=== PATIENT | female | born 1945 | race Caucasian/White ===

== ENCOUNTER 2019-11-18 15:08 | Inpatient (IN) ==
[2019-11-18] MEDS ORDERED: ONDANSETRON 4 MG/2 ML VIAL IV PRN (16:54)
[2019-11-18] MEDS ORDERED: SENNOSIDES 1 TABLET PO PRN (16:54)
[2019-11-18] MEDS ORDERED: ACETAMINOPHEN 325 MG TABLET PO PRN (16:54)
[2019-11-18] MEDS ORDERED: LACTULOSE 20 GM/30 ML ORAL.SOL PO PRN (16:54)
[2019-11-18] MEDS ORDERED: DEXTROSE 31 GM ORAL.SUSP PO PRN (16:54)
[2019-11-18] MEDS ORDERED: DEXTROSE 50% 50 ML VIAL IV PRN (16:54)
--- NOTE | 2019-11-18 18:01 | Internal Med History&Physical ---
Medical - H&P: [facility] Patient information: Note initiated : 11/18/19 at 5:57 pm Service Date, if different from initiated Date: [] Patient: Rosita Rodriguez a 74 y/o F admitted on 11/18/19 for End stage renal disease. Chief Complaint: Confusion History of present illness: Ms. Rodriguez is a 74 year old F with a history of cirrhosis as well as chronic kidney disease/new end-stage renal disease and dialysis, type 2 diabetes who presented to the emergency department at [facility] today with altered mental status. History is obtained in speaking with Dr. Kong from the [place] [facility]. The patient's recent past history includes an admission at [facility] on 11/04 where she presented with significant abdominal ascites and new acute on chronic renal failure. During that hospitalization she had paracenteses, eventually had a TIPS placed secondary to rapidly reaccumulating ascites. She was seen in consultation by nephrology, subsequently required hemodialysis and is had a tunneled catheter placed. She is now on 3 times a week dialysis with apparently new end-stage renal disease. 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 Yesterday, the patient's daughter reported at [facility] that she was alert and appropriate in her usual self. This morning, her daughter went to crab picker the patient to take her to a doctor's appointment and she had altered mental status, she was lethargic and somnolent. At [facility] her GCS was between 9 and 10, she opened her eyes, but was nonverbal. Evaluation there revealed mildly depressed white count of 3.6, normal electrolytes, and ammonia of 35. Urine analysis was negative for evidence of infection. Chest x-ray showed low lung volumes and head CT showed nonspecific aging changes. Patient is transferred to [facility] for admission because she will require maintenance hemodialysis, and for further evaluation of her encephalopathy. Patient is unable to give a reliable review of systems, answering at times "yes" to every question even when it was contradictory such as "are you breathing okay" and "are you short of breath" both being responded to in the affirmative. ROS unobtainable: due to mental status Medical - H&P: PMH Medical history: Amputation of fifth toe of right foot (Acute) Cirrhosis of liver not due to alcohol (Acute) End stage renal disease (Acute) Esophageal varices in cirrhosis (Acute) Osteomyelitis of toe of right foot (Acute) Type 2 diabetes mellitus with end-stage renal disease (Acute) Surgical history: History of cholecystectomy (Acute) History of total abdominal hysterectomy (Acute) S/P TIPS (transjugular intrahepatic portosystemic shunt) (Acute) Pertinent family history: Per outside records: Father Stroke Brother Stroke Mother Dementia Social history: Resides at living facility per outside records. Also per records, no current alcohol use, does not smoke. Medical - H&P: Meds Home Medications Medication Instructions Recorded Confirmed Type Ibuprofen [Advil] 200 mg PO BID 08/21/17 08/21/17 History Insulin Detemir [Levemir Flextouch] 100 unit SQ DAILY 08/21/17 08/21/17 History Ipratropium [place] [Atrovent Hfa] 1 puff INH PRN PRN 08/21/17 11/18/19 History Levocetirizine Dihydrochloride 5 mg PO DAILY 08/21/17 08/21/17 History [Xyzal] Multivit-Min/Iron/Folic Acid/K 1 each PO DAILY 08/21/17 11/18/19 History [Multi-Day Plus Minerals Tablet] Omeprazole [PriLOSEC] 20 mg PO ACB 08/21/17 08/21/17 History Telmisartan [Micardis] 80 mg PO HS 08/21/17 08/21/17 History Venlafaxine [Effexor] 75 mg PO BID 08/21/17 08/21/17 History Vitamin D3 1,000 unit PO DAILY 08/21/17 08/21/17 History traMADol [Ultram] 50 - 100 mg PO Q4HP PRN 08/21/17 08/21/17 History traZODone HCL [Trazodone HCl] 50 mg PO HS 08/21/17 08/21/17 History Acetaminophen [Non-Aspirin] 650 mg PO Q4 PRN 11/18/19 11/18/19 History Bisacodyl [Dulcolax] 10 mg IA DAILYP PRN 11/18/19 11/18/19 History DULoxetine [Cymbalta] 60 mg PO DAILY 11/18/19 History Furosemide [Lasix] 80 mg PO DAILY 11/18/19 History Lactulose [Enulose] 10 gm PO BID 11/18/19 11/18/19 History Lansoprazole [Prevacid 24Hr] 15 mg PO DAILY 11/18/19 11/18/19 History Magnesium Hydroxide [Milk of 30 ml PO DAILYP PRN 11/18/19 11/18/19 History Magnesia] Na Phos,M-B/Na Phos,Di-Ba [Fleets 1 dose IA PRN PRN 11/18/19 11/18/19 History Adult] Rifaximin [Xifaxan] 550 mg PO BID 11/18/19 11/18/19 History Spironolactone 50 mg PO DAILY 11/18/19 History Allergies Allergy/AdvReac Type Severity Reaction Status Date / Time Sulfa (Sulfonamide Allergy Severe Anaphylaxis Verified 11/18/19 18:48 Antibiotics) aspirin Allergy Mild Itching Verified 11/18/19 18:48 codeine Allergy Mild Hives Verified 11/18/19 18:48 diphenhydramine Allergy Mild Itching Verified 11/18/19 18:48 [From Benadryl] doxycycline Allergy Mild Itching Verified 11/18/19 18:48 morphine Allergy Mild Hives Verified 11/18/19 18:48 Banana Allergy Verified 11/18/19 18:48 oxycodone Allergy Verified 11/18/19 18:48 [place] Allergy Verified 11/18/19 18:48 cantaloupe Allergy Uncoded 11/18/19 18:48 Medical - H&P: Exam - Constitutional Exam: GENERAL: Awake, disoriented, nontoxic-appearing. HEENT: Atraumatic. PERRL at 4 mm, conjunctiva clear, no scleral icterus. Hearing appears grossly intact. Oropharynx with tacky mucous membranes, no lip or gum lesions, pharyngeal exam limited due to patient having difficulty cooperating with exam; tongue midline. NECK: Supple without meningismus, good passive range of motion, no thyromegaly RESPIRATORY: Few basal rales bilaterally, no wheezes or rhonchi. Respiratory effort is unlabored. CARDIOVASCULAR: Regular rate and rhythm, 1/6 systolic murmur URSB, no gallop or rub. 1+ peripheral edema. Carotid pulses 2+. GI: Abdomen soft, nontender, no guarding or rebound. Distended, with dull flanks to percussion. Bowel sounds are present. MUSCULOSKELETAL: No joint erythema or swelling, normal range of motion in all extremities. SKIN: Intact, warm, dry, no jaundice. Scattered small eschars on the skin. Skin turgor normal. NEUROLOGIC: Cranial nerves II through XII grossly intact as can best be tested. Muscle mass normal. Moves all extremities with apparent equal strength Deep tendon reflexes 2+ at the biceps and patella. PSYCHIATRIC: Awake, responses are repetitive. Disoriented. Medical - H&P: Reslt - Labs CBC & Chem 7: 11/18/19 17:39 11/18/19 17:39 Labs: At [facility]: Sodium 139, potassium 4.7, bicarb 24, chloride 103, BUN 44, creatinine 3.1 WBC 3.6, hemoglobin 8.5, platelet count 78,000 Ammonia 35 - Impressions Chest x-ray from [facility] read as low normal lung volumes with interstitial edema CT of the head at [facility] read as mild, nonspecific senescent aging changes with pansinusitis Medical - H&P: A/P (1) Encephalopathy acute Current visit: Yes Status: Acute (2) End stage renal disease Current visit: Yes Status: Acute (3) Type 2 diabetes mellitus with renal complication Current visit: Yes Status: Chronic (4) Cirrhosis Current visit: Yes Status: Chronic - Narrative A/P Narrative: 74-year-old female with recent progression to end-stage renal disease, cirrhosis with recent TIPS placement presents with altered mental status/encephalopathy. Encephalopathy. Patient apparently was at her usual, normal baseline yesterday when her daughter saw her. Today she is confused and lethargic. Differential diagnosis includes -hepatic encephalopathy related to her recent TIPS procedure, though she is on rifaximin and lactulose and ammonia is normal -sepsis is another possibility, though no focal site of infection other than pansinusitis found -SBP causing decompensation is possible, she appears to have recurrent ascites on exam -medication effect also possibility. Plan: Inpatient admission Check blood cultures for occult bacteremia Follow-up toxicology screen done at [facility] Paracentesis to rule out SBP Continue treatment with rifaximin and lactulose If not improving, consider MRI of the head End-stage renal disease. Started on hemodialysis during her recent hospitalization at [facility] between 11/04 and 11/12 earlier this month. Has a tunneled dialysis catheter. Catheter is nontender, no erythema, lower suspicion for infection. Plan: Nephrology consultation, apparently patient missed her dialysis today. Type 2 diabetes. On insulin in the past, does not appear to be on medications currently according to facility drug list Plan: Renal/diabetic diet if able to take p.o., Accu-Cheks, sliding scale insulin. Check hemoglobin A1c. Cirrhosis. Noted to be idiopathic in past records. Past records also indicate a history of variceal banding. Had TIPS procedure done during prior hospitalization earlier this month secondary to recurrent ascites. Plan: Continue rifaximin and lactulose. Check TIPS patency. Paracentesis to evaluate for SBP as noted above. Prophylaxis: Subcu heparin CODE STATUS: Discussed with her daughter, full code
[2019-11-18] MEDS: INSULIN LISPRO 1 UNIT/0.01 ML UNIT SQ SCH ×2 (18:11→21:39)
[2019-11-18 18:26] LABS: Basophils # (Auto) 0.02 K/mcL (0.00-0.30); Basophils % (Auto) 0.7 % (0.0-2.0); Eosinophils # (Auto) 0.11 K/mcL (0.00-0.70); Eosinophils % (Auto) 3.6 % (0.0-7.0); Hematocrit 25.8 % (34.1-44.9); Hemoglobin 8.6 g/dL (11.2-15.7); Lymphocytes # (Auto) 0.54 K/mcL (1.50-4.80); Lymphocytes % (Auto) 17.8 % (15.5-49.0); Mean Cell Volume 83.8 fL (80.0-100.0); Mean Corpuscular HGB Conc 33.3 g/dL (31.0-36.0); Mean Platelet Volume 9.8 fL (7.4-10.4); Monocytes # (Auto) 0.33 K/mcL (0.10-0.90); Monocytes % (Auto) 10.9 % (1.0-12.0); Platelet Count 71 K/mcL (140-440); RBC 3.08 M/mcL (3.59-5.38); Red Cell Distribution Width 16.2 % (11.5-14.5)
[2019-11-18 18:55] LABS: ALT/SGPT 21 U/l (0-40); AST/SGOT 55 U/l (0-37); Albumin 2.7 gm/dL (3.2-5.2); Alkaline Phosphatase 159 U/L (39-117); Bilirubin,Total 1.4 mg/dL (0.0-1.0); Blood Urea Nitrogen 47 mg/dl (8-23); Calcium 8.5 mg/dl (8.6-10.4); Carbon Dioxide 23 mmol/L (22-30); Chloride 100 mmol/L (96-108); Globulin 2.7 gm/dL (2.2-3.7); Glomerular Filtration Rate 14; Glucose 120 mg/dL (70-105); Lactate Dehydrogenase 386 U/L (94-250); Phosphorous 5.4 mg/dL (2.7-4.5); Triglycerides 71 mg/dl (<150)
[2019-11-18 19:01] LABS: Bilirubin,Direct 0.5 mg/dL (0.0-0.3); Uric Acid 5.9 mg/dL (2.5-8.0)
[2019-11-18 19:21] LABS: Estimated Average Glucose(eAG) 169 mg/dL; Hemoglobin A1C 7.5 % HGB (4.0-6.0)
[2019-11-18] MEDS: DOCUSATE SODIUM 100 MG CAPSULE PO SCH (21:39)
[2019-11-18] MEDS: 0.9 % SODIUM CHLORIDE 10 ML SYRINGE IV SCH (21:46)
[2019-11-18] MEDS: HEPARIN 5,000 UNIT/ML VIAL SQ SCH (21:46)
[2019-11-18] MEDS: FAMOTIDINE/PF 20 MG/2 ML VIAL IV SCH (21:46)
[2019-11-19 01:25] LABS: Basophils,Peritoneal Fluid 2 %; Macrophages,Peritoneal Fluid 36 %; Mesothelial,Peritoneal Fluid 1 %; Monocyte,Peritoneal Fluid 7 %; Neutrophils,Peritoneal Fluid 6 %; Nucleated Cel,Peritoneal Fluid 131 /cumm; RBC,Peritoneal Fluid < 50000 /cumm
--- NOTE | 2019-11-19 03:26 | Ultrasound Report ---
Ultrasound-guided paracentesis Technique: The procedure and risks including possibility of bleeding, infection, bowel and parenchymal organ perforation were explained the patient. He understood and wished to proceed. Bowling Alley Manager scanning demonstrated Ascites in the right lower quadrant which was free of bowel. The skin was marked, prepped and locally anesthetized 1% lidocaine to the level of the parietal peritoneum using a 25-gauge needle. A 18-gauge Yueh needle was then placed under sonographic guidance into the ascites and 5.5 mm of mildly hemorrhagic ascites was aspirated. The needle was removed. Postprocedure scanning shows mild residual ascites. No apparent complication - patient tolerated procedure well. IMPRESSION: Successful ultrasound-guided paracentesis yielding 5.5 L of mildly hemorrhagic ascites. Postprocedure scanning shows only mild residual fluid. Patient tolerated procedure well without apparent complication Interpreted and Authenticated by: Cirilo Guerrero 11/19/19
--- NOTE | 2019-11-19 03:35 | Ultrasound Report ---
CLINICAL INFORMATION: Eval TIPS patency COMPARISON: None. FINDINGS: Liver shows slight decrease in size with irregular cortex elevated echotexture compatible with history of cirrhosis. No focal hepatic lesions. Moderate ascites appreciated. Main portal vein velocity is 35.2 cm/s with hepatopedal flow. Proximal TIPS stent velocity is 176 cm. Mid TIPS velocity 49 cm/s and distally, near the IVC, is 55 cm/s IMPRESSION: Decreased velocity in the mid and distal TIPS suggesting partial thrombosis. Cirrhosis with moderate ascites Interpreted and Authenticated by: Cirilo Guerrero 11/19/19
[2019-11-19] MEDS: 0.9 % SODIUM CHLORIDE 10 ML SYRINGE IV SCH ×3 (06:07→20:53)
[2019-11-19 06:53] LABS: ALT/SGPT 19 U/l (0-40); AST/SGOT 49 U/l (0-37); Albumin 2.2 gm/dL (3.2-5.2); Albumin/Globulin Ratio 0.9 (1.0-2.3); Alkaline Phosphatase 121 U/L (39-117); Bilirubin,Direct 0.4 mg/dL (0.0-0.3); Bilirubin,Total 1.1 mg/dL (0.0-1.0); Calcium 7.7 mg/dl (8.6-10.4); Carbon Dioxide 25 mmol/L (22-30); Chloride 102 mmol/L (96-108); Globulin 2.5 gm/dL (2.2-3.7); Glucose 96 mg/dL (70-105); Lactate Dehydrogenase 329 U/L (94-250); Triglycerides 70 mg/dl (<150); Uric Acid 3.4 mg/dL (2.5-8.0)
[2019-11-19 06:57] LABS: Blood Urea Nitrogen 23 mg/dl (8-23); Glomerular Filtration Rate 23; Phosphorous 3.1 mg/dL (2.7-4.5)
[2019-11-19 07:38] LABS: Basophils # (Auto) 0.02 K/mcL (0.00-0.30); Basophils % (Auto) 1.1 % (0.0-2.0); Eosinophils # (Auto) 0.07 K/mcL (0.00-0.70); Eosinophils % (Auto) 3.7 % (0.0-7.0); Granulocytes % (Auto) 62.3 % (38.0-78.0); Hematocrit 19.7 % (34.1-44.9); Hemoglobin 6.5 g/dL (11.2-15.7); Lymphocytes # (Auto) 0.39 K/mcL (1.50-4.80); Lymphocytes % (Auto) 20.7 % (15.5-49.0); Mean Platelet Volume 10.3 fL (7.4-10.4); Monocytes # (Auto) 0.23 K/mcL (0.10-0.90); Monocytes % (Auto) 12.2 % (1.0-12.0); Platelet Count 51 K/mcL (140-440); RBC 2.29 M/mcL (3.59-5.38); WBC 1.9 K/mcL (4.50-11.00)
[2019-11-19] MEDS ORDERED: LACTULOSE 20 GM/30 ML ORAL.SOL PO SCH (09:00)
[2019-11-19] MEDS ORDERED: ESCITALOPRAM 10 MG TABLET PO SCH (09:00)
[2019-11-19] MEDS ORDERED: RIFAXIMIN 550 MG TABLET PO SCH (09:00)
[2019-11-19] MEDS ORDERED: FERROUS GLUCONATE 324 MG TABLET PO SCH (09:00)
[2019-11-19] MEDS ORDERED: MULTIVIT,THER IRON,CA,FA & MIN 1 TABLET PO SCH (09:00)
[2019-11-19] MEDS: INSULIN LISPRO 1 UNIT/0.01 ML UNIT SQ SCH ×4 (09:24→21:12)
[2019-11-19] MEDS: HEPARIN 5,000 UNIT/ML VIAL SQ SCH ×2 (10:04→20:52)
[2019-11-19] MEDS ORDERED: FUROSEMIDE 80 MG TABLET PO SCH (10:21)
[2019-11-19] MEDS ORDERED: SPIRONOLACTONE 25 MG TABLET PO SCH (10:22)
[2019-11-19] MEDS: DOCUSATE SODIUM 100 MG CAPSULE PO SCH ×2 (10:30→20:51)
[2019-11-19] MEDS: FAMOTIDINE/PF 20 MG/2 ML VIAL IV SCH (10:30)
[2019-11-19] MEDS: CALCIUM CARBONATE 500 MG TAB.CHEW CHEWED SCH ×4 (10:30→20:52)
--- NOTE | 2019-11-19 11:16 | Consultation ---
DATE OF CONSULTATION: 11/19/2019 REASON FOR CONSULTATION: End-stage renal disease and change in mental status. HISTORY OF PRESENT ILLNESS: The patient is a 74-year-old female with past medical history significant for cirrhosis of liver. Last week she was hospitalized at [facility] and developed progressive renal insufficiency. Towards the end of her discharge, her renal function started to improve with a slight increase in urine output, but she was and uremic. For that reason, she was initiated on hemodialysis with a tunneled dialysis catheter. She had two treatments, the last this week at the dialysis unit, but she apparently developed confusion immediately yesterday. For that reason, she was brought into the emergency room. In the emergency room, she was found to be lethargic and somnolent. For that reason, she was hospitalized. PAST MEDICAL HISTORY: 1. Cirrhosis of liver not due to alcohol. 2. Acute kidney disease, possibly ATN or hepatorenal syndrome. 3. Esophageal varices. 4. Osteomyelitis of the right foot. 5. Type 2 diabetes. PAST SURGICAL HISTORY: 1. History of cholecystectomy. 2. History of total abdominal hysterectomy. 3. History of TIPS procedure done last week. FAMILY HISTORY: Father had a stroke. Mother had a stroke and there was dementia in the mother as well. SOCIAL HISTORY: She currently resides at a facility. No history of alcohol or smoking. MEDICATIONS ON ADMISSION: 1. Insulin. 2. Ipratropium p.r.n. 3. Omeprazole 20 mg at night. 4. Telmisartan 80 mg at night. 5. mg b.i.d. 6. Tamsulosin has been discontinued since the last hospitalization. 7. She was supposed to be on Lasix 80 mg and Spironolactone 50 mg daily. ALLERGIES: 1. SULFA. 2. ASPIRIN. 3. CODEINE. 4. DIPHENHYDRAMINE. 5. DOXYCYCLINE. 6. MORPHINE. 7. OXYCODONE. 8. BANANAS. 9. STRAWBERRY. 10. CANTALOUPE. PHYSICAL EXAMINATION: GENERAL: She is alert this morning and oriented x3, not in distress. VITAL SIGNS: Blood pressures have been 110 to 120s systolic with a diastolic in the 40s, pulse rates are in the 60s, respiratory rate 12, temperature 99.7 with a pulse oximetry of 94%. I's and O's, she had 135 mL out. HEENT: NC/AT. Pupils are reactive to light. She is icteric. NECK: Supple. No jugular venous distention. No enlarged lymphadenopathy. LUNGS: Decreased air entry bilaterally. No rales or rhonchi heard. CARDIAC: S1, S2 heard. No S3, S4. There is a 2/6 systolic murmur. ABDOMEN: Soft, slightly distended. No organomegaly. Positive bowel sounds. EXTREMITIES: Showed 1+ edema. Difficult to palpate a dorsalis pedis and posterior tibials. No skin rash or joint swelling noted. NEURO: Appears to be grossly intact. LABORATORY DATA: White count is 1.9 with a hemoglobin of 6.5 and a platelet count of 51. That is from this morning and Dr. Marie is aware of that. Sodium 137, potassium 3.6, chloride of 102, CO2 25, BUN of 23, creatinine of 2.1. ASSESSMENT AND PLAN: 1. Acute kidney disease, possibly acute tubular necrosis (ATN), may be hepatorenal syndrome. She is still not making enough urine. She is to be started back on Lasix 80 mg and spironolactone 50 mg in the morning. We will continue to watch her closely. She had her dialysis treatment yesterday. I will see if she needs treatment tomorrow. If not, we will just watch. 2. Anemia. It could be dilutional. She will be transfused as per Dr. Marie. 3. Volume status. She had significant paracentesis yesterday, and she also had fluid removed with the dialysis. Bridgett Job ID: [id number] Doc ID: [id number] Rajat Garcia MD
--- NOTE | 2019-11-19 11:21 | Internal Med Progress Note ---
Medical - PN: Subj Patient information: Note initiated : 11/19/19 at 11:19 am Service Date, if different from initiated Date: [] Patient: Rosita Rodriguez a 74 y/o F admitted on 11/18/19 for End stage renal disease. Chief Complaint: f/u encephalopathy Interval history: 11/18 Ms. Rodriguez is a 74 year old F with a history of cirrhosis as well as chronic kidney disease/new end-stage renal disease and dialysis, type 2 diabetes who presented to the emergency department at [facility] today with altered mental status. History is obtained in speaking with Dr. Kong from the [place] [facility]. The patient's recent past history includes an admission at [facility] on 11/04 where she presented with significant abdominal ascites and new acute on chronic renal failure. During that hospitalization she had paracenteses, eventually had a TIPS placed secondary to rapidly reaccumulating ascites. She was seen in consultation by nephrology, subsequently required hemodialysis and is had a tunneled catheter placed. She is now on 3 times a week dialysis with apparently new end-stage renal disease. 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 Yesterday, the patient's daughter reported at [facility] that she was alert and appropriate in her usual self. This morning, her daughter went to order picker/assembler the patient to take her to a doctor's appointment and she had altered mental status, she was lethargic and somnolent. At [facility] her GCS was between 9 and 10, she opened her eyes, but was nonverbal. Evaluation there revealed mildly depressed white count of 3.6, normal electrolytes, and ammonia of 35. Urine analysis was negative for evidence of infection. Chest x-ray showed low lung volumes and head CT showed nonspecific aging changes. 11/19 Feels significantly improved with this morning. Daughter states she is very close to her baseline. She does not recall much of the events of yesterday. Hemoglobin 6.8 this morning, rechecking to rule out lab error. Had paracentesis of 5.5 L yesterday, 2 L ultrafiltration during dialysis. Discussed with Dr. Garcia this morning, will place on diuretics to help prevent reaccumulation of ascites. He is hopeful she will have recovery of renal function, suspect ATN and not definitive for ESRD at this point. Does not need dialysis this morning. Pertinent ROS: Denies dyspnea, chest pain, abdominal pain. Appetite good. - Constitutional Vitals: Vital Signs Temp Pulse Resp BP Pulse Ox 99.7 F H 79 14 116/43 94 11/19/19 08:01 11/19/19 02:31 11/19/19 08:01 11/19/19 08:01 11/19/19 08:01 Period Temp Pulse Resp BP Sys/Singh Pulse Ox Last 24 Hr 98.5 F-99.9 F 67-79 11-27 114-156/41-64 94-100 Intake and Output 11/18/19 11/19/19 11/19/19 21:59 05:59 13:59 Intake Total 0 Output Total 2000 175 Balance -[id number] Weight 194 lb 11.2 oz 175 lb Intake & Output: Intake & Output 11/18/19 11/19/19 11/19/19 21:59 05:59 13:59 Intake Total 0 Output Total 2000 175 Balance -[id number] Weight 194 lb 11.2 oz 175 lb Intake: Oral 0 Output: Void Amount 175 # of times incontinent of urine 1 Hemodialysis UF 1999 Other: Urine Appearance Clear Urine Color Bright Yellow Urine Odor Normal Stool Size Large Smear Small Stool Color Brown Green Brown Green Stool Consistency Soft Martha # Bowel Movements 1 # of times incontinent of 1 Bowels Exam: General: Sitting up in bed no acute distress Chest: Clear, no rales Cardiovascular: Regular, trace lower extremity edema Abdomen: Soft, nontender, no bulging flanks, tympanic Neuro: Alert, oriented person, place, situation, conversing normally. Moves all extremities equally. Medical - PN: Obj Da - Labs CBC & Chem 7: 11/19/19 16:57 11/19/19 05:03 Labs: Abnormal Lab Results 11/19/19 11/19/19 11/18/19 05:03 05:02 17:39 WBC 1.9 L RBC 2.29 L Hgb 6.5 L* Hct 19.7 L* RDW 16.0 H Plt Count 51 L [place] % (Auto) 12.2 H Gran # 1.17 L Lymph # (Auto) 0.39 L BUN 47 H Creatinine 2.1 H 3.2 H Glucose 120 H Hemoglobin A1c 7.5 H Calcium 7.7 L 8.5 L Phosphorus 5.4 H Total Bilirubin 1.1 H 1.4 H Direct Bilirubin 0.4 H 0.5 H GGT 42 H 51 H AST 49 H 55 H Alkaline Phosphatase 121 H 159 H Lactate Dehydrogenase 329 H 386 H Total Protein 4.7 L 5.4 L Albumin 2.2 L 2.7 L Albumin/Globulin Ratio 0.9 L 11/18/19 17:39 WBC 3.0 L RBC 3.08 L Hgb 8.6 L Hct 25.8 L RDW 16.2 H Plt Count 71 L [place] % (Auto) Gran # Lymph # (Auto) 0.54 L BUN Creatinine Glucose Hemoglobin A1c Calcium Phosphorus Total Bilirubin Direct Bilirubin GGT AST Alkaline Phosphatase Lactate Dehydrogenase Total Protein Albumin Albumin/Globulin Ratio Meds: Medications Acetaminophen (Tylenol) 650 mg PO Q6HP PRN; Protocol PRN Reason: Per Pain Protocol/Fever > 101 Calcium Carbonate/Glycine (Tums) 2,000 mg CHEWED TID [facility] Last Admin: 11/19/19 10:30 Dose: 2,000 mg Documented by: Dextrose (Dextrose 50%) 0 ml IV UD PRN PRN Reason: Hypoglycemia Diagnostic Test (Pha) (Accu-Chek) 1 each FS [facility] Last Admin: 11/19/19 08:45 Dose: 1 each Documented by: Docusate Sodium (Colace) 100 mg PO BID [facility] Last Admin: 11/19/19 10:30 Dose: 100 mg Documented by: Escitalopram Oxalate (Lexapro) 10 mg PO DAILY [facility] Last Admin: 11/19/19 10:30 Dose: 10 mg Documented by: Famotidine (Pepcid) 20 mg IV Q12 [facility] Last Admin: 11/19/19 10:30 Dose: 20 mg Documented by: Ferrous Gluconate (Fergon) 324 mg PO QAM [facility] Last Admin: 11/19/19 10:31 Dose: 324 mg Documented by: Furosemide (Lasix) 80 mg PO DAILY [facility] Last Admin: 11/19/19 10:58 Dose: 80 mg Documented by: Glucose (Insta-Glucose) 15 gm PO PRN PRN PRN Reason: Hypoglycemia Heparin Sodium (Porcine) (Heparin) 5,000 unit SQ Q12 [facility] Last Admin: 11/19/19 10:04 Dose: Not Given Documented by: Insulin Human Lispro (Humalog) 0 unit SQ [facility]; Protocol Last Admin: 11/19/19 09:24 Dose: Not Given Documented by: Iron Carb/Multivit/Elaine/Folic Acid (Multivitamin W/Minerals) 1 tab PO DAILY [facility] Last Admin: 11/19/19 10:30 Dose: 1 tab Documented by: Lactulose (Cephulac) 10 gm PO BID [facility] Last Admin: 11/19/19 10:30 Dose: 10 gm Documented by: Ondansetron HCl (Zofran) 4 mg IV Q4HP PRN; Protocol PRN Reason: Nausea And Vomiting Senna (Senokot) 2 tab PO HSP PRN PRN Reason: Constipation Sodium Chloride (Saline Flush) 10 ml IV Q8 [facility] Last Admin: 11/19/19 06:07 Dose: Not Given Documented by: Spironolactone (Aldactone) 50 mg PO DAILY [facility] Last Admin: 11/19/19 10:58 Dose: 50 mg Documented by: Medical - PN: A/P - Time Spent With Patient Total time spent is greater than 50% in coordination of care (as documented) at patient's floor/unit and/or counseling patient: Greater than 35 minutes (1) Encephalopathy acute Status: Acute Current Visit: Yes (2) End stage renal disease Status: Acute Current Visit: Yes (3) Type 2 diabetes mellitus with renal complication Status: Chronic Current Visit: No (4) Cirrhosis Status: Chronic Current Visit: No - Narrative A/P Narrative: Encephalopathy. Improved/resolving. Suspect combination of hepatic e ncephalopathy, made worse by recent TIPS procedure and volume overload from renal failure. No evidence of sepsis, SBP ruled out. Plan: Continue with rifaximin and lactulose Begin furosemide and spironolactone to help prevent reaccumulation of ascites Follow-up cultures, though suspicion for sepsis low at this point Changed to MedSurg status PT evaluation ATN/dialysis dependent. Clarified with Dr. Garcia this morning. He is hopeful she will have return of renal function. Underlying CKD. Received hemodialysis for volume overload yesterday evening. No dialysis this morning. Plan: Begin diuretics, monitor volume status. Anemia. Hemoglobin 6.8 today, however all lineages including white count and platelets are decreased, query whether this was a diluted sample. Plan: Recheck CBC, transfuse if hemoglobin low. Type 2 diabetes. Full facility list obtained, the patient is on 25 units of long-acting insulin at bedtime. Plan: Continue renal/diabetic diet, Accu-Cheks, sliding scale insulin. Will add long-acting insulin if diet picks up and glucoses trend upward Cirrhosis. Noted to be idiopathic in past records. Past records also indicate a history of variceal banding. Had TIPS procedure done during prior hospitalization earlier this month secondary to recurrent ascites. Liver ultrasound suggest possible stenosis. Plan: Continue rifaximin and lactulose. Prophylaxis: Subcu heparin CODE STATUS: Discussed with her daughter, full code Medical - PN: Qual - Stroke Symptom Onset Unknown: No - VTE Deep Vein Thrombosis/Pulmonary Embolism Present on Admission: No
[2019-11-19] MEDS ORDERED: DEXTROSE 31 GM ORAL.SUSP PO PRN (14:04)
[2019-11-19] MEDS ORDERED: DEXTROSE 50% 50 ML VIAL IV PRN (14:04)
[2019-11-19] MEDS ORDERED: SENNOSIDES 1 TABLET PO PRN (14:04)
[2019-11-19] MEDS ORDERED: ACETAMINOPHEN 325 MG TABLET PO PRN (14:04)
[2019-11-19] MEDS: OMEPRAZOLE 20 MG CAPSULE PO SCH (17:38)
[2019-11-19 17:39] LABS: Hematocrit 21.8 % (34.1-44.9); Hemoglobin 7.1 g/dL (11.2-15.7); Mean Cell Volume 87.2 fL (80.0-100.0); Mean Corpuscular HGB Conc 32.6 g/dL (31.0-36.0); Mean Platelet Volume 10.5 fL (7.4-10.4); Platelet Count 58 K/mcL (140-440); Red Cell Distribution Width 15.9 % (11.5-14.5); WBC 2.4 K/mcL (4.50-11.00)
[2019-11-19] MEDS ORDERED: 0.9 % SODIUM CHLORIDE 250 ML IV SCH (18:45)
[2019-11-19] MEDS: RIFAXIMIN 550 MG TABLET PO SCH (20:51)
[2019-11-19] MEDS: LACTULOSE 20 GM/30 ML ORAL.SOL PO SCH (20:52)
[2019-11-19] MEDS: MUPIROCIN OINT 2% 22GM NARES SCH (21:13)
[2019-11-20] MEDS: 0.9 % SODIUM CHLORIDE 10 ML SYRINGE IV SCH ×3 (06:10→21:02)
[2019-11-20 07:09] LABS: ALT/SGPT 17 U/l (0-40); AST/SGOT 48 U/l (0-37); Albumin 2.3 gm/dL (3.2-5.2); Alkaline Phosphatase 126 U/L (39-117); Calcium 7.7 mg/dl (8.6-10.4); Carbon Dioxide 25 mmol/L (22-30); Globulin 2.2 gm/dL (2.2-3.7); Glucose 156 mg/dL (70-105); Lactate Dehydrogenase 317 U/L (94-250); Phosphorous 3.8 mg/dL (2.7-4.5); Triglycerides 39 mg/dl (<150); Uric Acid 4.2 mg/dL (2.5-8.0)
[2019-11-20 07:12] LABS: Bilirubin,Direct 0.3 mg/dL (0.0-0.3); Blood Urea Nitrogen 33 mg/dl (8-23); Chloride 95 mmol/L (96-108); Glomerular Filtration Rate 15
[2019-11-20] MEDS: MULTIVIT,THER IRON,CA,FA & MIN 1 TABLET PO SCH (08:22)
[2019-11-20] MEDS: OMEPRAZOLE 20 MG CAPSULE PO SCH ×2 (08:22→17:37)
[2019-11-20] MEDS: ESCITALOPRAM 10 MG TABLET PO SCH (08:22)
[2019-11-20] MEDS: INSULIN LISPRO 1 UNIT/0.01 ML UNIT SQ SCH ×4 (08:22→21:14)
[2019-11-20] MEDS: SPIRONOLACTONE 25 MG TABLET PO SCH (08:23)
[2019-11-20] MEDS: RIFAXIMIN 550 MG TABLET PO SCH ×2 (08:23→21:01)
[2019-11-20] MEDS: CALCIUM CARBONATE 500 MG TAB.CHEW CHEWED SCH ×3 (08:23→21:01)
[2019-11-20] MEDS: DOCUSATE SODIUM 100 MG CAPSULE PO SCH ×2 (08:23→21:02)
[2019-11-20] MEDS: FERROUS GLUCONATE 324 MG TABLET PO SCH (08:23)
[2019-11-20] MEDS: FUROSEMIDE 80 MG TABLET PO SCH (08:23)
[2019-11-20] MEDS: MUPIROCIN OINT 2% 22GM NARES SCH ×2 (08:24→21:02)
[2019-11-20] MEDS: LACTULOSE 20 GM/30 ML ORAL.SOL PO SCH ×2 (08:24→21:01)
[2019-11-20] MEDS: HEPARIN 5,000 UNIT/ML VIAL SQ SCH ×2 (08:24→21:02)
[2019-11-20 12:19] LABS: Hematocrit 25.1 % (34.1-44.9); Hemoglobin 8.5 g/dL (11.2-15.7); Mean Cell Volume 85.4 fL (80.0-100.0); Mean Corpuscular HGB Conc 33.9 g/dL (31.0-36.0); Platelet Count 48 K/mcL (140-440); RBC 2.94 M/mcL (3.59-5.38); Red Cell Distribution Width 15.5 % (11.5-14.5)
--- NOTE | 2019-11-20 14:24 | Internal Med Progress Note ---
Medical - PN: Subj Patient information: Note initiated : 11/20/19 at 2:20 pm Service Date, if different from initiated Date: [] Patient: Rosita Rodriguez a 74 y/o F admitted on 11/18/19 for End stage renal disease. Chief Complaint: [] Interval history: 11/18 Ms. Rodriguez is a 74 year old F with a history of cirrhosis as well as chronic kidney disease/new end-stage renal disease and dialysis, type 2 diabetes who presented to the emergency department at [facility] today with altered mental status. History is obtained in speaking with Dr. Kong from the [place] ED. The patient's recent past history includes an admission at [facility] on 11/04 where she presented with significant abdominal ascites and new acute on chronic renal failure. During that hospitalization she had paracenteses, eventually had a TIPS placed secondary to rapidly reaccumulating ascites. She was seen in consultation by nephrology, subsequently required hemodialysis and is had a tunneled catheter placed. She is now on 3 times a week dialysis with apparently new end-stage renal disease. 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 Yesterday, the patient's daughter reported at [facility] that she was alert and appropriate in her usual self. This morning, her daughter went to cigar pack[employer] and picker the patient to take her to a doctor's appointment and she had altered mental status, she was lethargic and somnolent. At [facility] her GCS was between 9 and 10, she opened her eyes, but was nonverbal. Evaluation there revealed mildly depressed white count of 3.6, normal electrolytes, and ammonia of 35. Urine analysis was negative for evidence of infection. Chest x-ray showed low lung volumes and head CT showed nonspecific aging changes. 11/19 Feels significantly improved with this morning. Daughter states she is very close to her baseline. She does not recall much of the events of yesterday. Hemoglobin 6.8 this morning, rechecking to rule out lab error. Had paracentesis of 5.5 L yesterday, 2 L ultrafiltration during dialysis. Discussed with Dr. Garcia this morning, will place on diuretics to help prevent reaccumulation of ascites. He is hopeful she will have recovery of renal function, suspect ATN and not definitive for ESRD at this point. Does not need dialysis this morning. Continues to do well. Abdomen remains soft and nondistended. Feels like she is about at her baseline. Tolerating diuretics. She was concerned that spironolactone because diarrhea, though that seems difficult to tease out as she is also on lactulose. - Constitutional Vitals: Vital Signs Temp Pulse Resp BP Pulse Ox 98.8 F 74 14 139/60 95 11/20/19 12:00 11/20/19 12:00 11/20/19 12:00 11/20/19 12:00 11/20/19 12:00 Period Temp Pulse Resp BP Sys/Singh Pulse Ox Last 24 Hr 97.7 F-99.1 F 69-76 14-19 105-139/40-86 95-99 Intake and Output 11/20/19 11/20/19 11/20/19 05:59 13:59 21:59 Intake Total 240 805 Output Total 250 Balance -10 805 Intake & Output: Intake & Output 11/20/19 11/20/19 11/20/19 05:59 13:59 21:59 Intake Total 240 805 Output Total 250 Balance -10 805 Intake: Oral 240 480 Blood Product 325 Output: Urine/Stool Mix 250 Other: Meal Lunch Percent of Meal Consumed 100% Feeding Ability Independent Stool Size Moderate Large Stool Color Brown Brown Yellow Yellow Stool Consistency Loose Soft # Voids 1 # Bowel Movements 1 # of times incontinent of 1 1 Bowels Exam: General: Looks well, no dress stress Chest: Clear, no rales Cardiovascular: Regular Abdomen soft, nontender, mild dullness at the flank, flanks are not bulging. No fluid wave appreciated. Neuro: Alert, oriented to person, place, situation with some generalized weakness. Medical - PN: Obj Da - Labs CBC & Chem 7: 11/20/19 11:45 11/20/19 05:13 Labs: Abnormal Lab Results 11/20/19 11/20/19 11/19/19 11:45 05:13 16:57 WBC 3.0 L 2.4 L RBC 2.94 L 2.50 L Hgb 8.5 L 7.1 L Hct 25.1 L 21.8 L RDW 15.5 H 15.9 H Plt Count 48 L* 58 L MPV 11.0 H 10.5 H [place] % (Auto) Gran # Lymph # (Auto) Sodium 130 L Chloride 95 L BUN 33 H Creatinine 3.0 H Glucose 156 H Hemoglobin A1c Calcium 7.7 L Phosphorus Total Bilirubin Direct Bilirubin GGT 41 H AST 48 H Alkaline Phosphatase 126 H Lactate Dehydrogenase 317 H Total Protein 4.5 L Albumin 2.3 L Albumin/Globulin Ratio 11/19/19 11/19/19 11/18/19 05:03 05:02 17:39 WBC 1.9 L RBC 2.29 L Hgb 6.5 L* Hct 19.7 L* RDW 16.0 H Plt Count 51 L MPV [place] % (Auto) 12.2 H Gran # 1.17 L Lymph # (Auto) 0.39 L Sodium Chloride BUN 47 H Creatinine 2.1 H 3.2 H Glucose 120 H Hemoglobin A1c 7.5 H Calcium 7.7 L 8.5 L Phosphorus 5.4 H Total Bilirubin 1.1 H 1.4 H Direct Bilirubin 0.4 H 0.5 H GGT 42 H 51 H AST 49 H 55 H Alkaline Phosphatase 121 H 159 H Lactate Dehydrogenase 329 H 386 H Total Protein 4.7 L 5.4 L Albumin 2.2 L 2.7 L Albumin/Globulin Ratio 0.9 L 11/18/19 17:39 WBC 3.0 L RBC 3.08 L Hgb 8.6 L Hct 25.8 L RDW 16.2 H Plt Count 71 L MPV [place] % (Auto) Gran # Lymph # (Auto) 0.54 L Sodium Chloride BUN Creatinine Glucose Hemoglobin A1c Calcium Phosphorus Total Bilirubin Direct Bilirubin GGT AST Alkaline Phosphatase Lactate Dehydrogenase Total Protein Albumin Albumin/Globulin Ratio Meds: Medications Acetaminophen (Tylenol) 650 mg PO Q6HP PRN; Protocol PRN Reason: Per Pain Protocol/Fever > 101 Calcium Carbonate/Glycine (Tums) 2,000 mg CHEWED TID [facility] Last Admin: 11/20/19 08:23 Dose: 2,000 mg Documented by: Dextrose (Dextrose 50%) 0 ml IV UD PRN PRN Reason: Hypoglycemia Diagnostic Test (Pha) (Accu-Chek) 1 each FS ACHS [facility] Last Admin: 11/20/19 12:02 Dose: 1 each Documented by: Docusate Sodium (Colace) 100 mg PO BID [facility] Last Admin: 11/20/19 08:23 Dose: 100 mg Documented by: Escitalopram Oxalate (Lexapro) 10 mg PO DAILY [facility] Last Admin: 11/20/19 08:22 Dose: 10 mg Documented by: Ferrous Gluconate (Fergon) 324 mg PO QAM [facility] Last Admin: 11/20/19 08:23 Dose: 324 mg Documented by: Furosemide (Lasix) 80 mg PO DAILY [facility] Last Admin: 11/20/19 08:23 Dose: 80 mg Documented by: Glucose (Insta-Glucose) 15 gm PO PRN PRN PRN Reason: Hypoglycemia Heparin Sodium (Porcine) (Heparin) 5,000 unit SQ Q12 [facility] Last Admin: 11/20/19 08:24 Dose: 5,000 unit Documented by: Insulin Human Lispro (Humalog) 0 unit SQ ACHS [facility]; Protocol Last Admin: 11/20/19 12:01 Dose: 4 units Documented by: Iron Carb/Multivit/[place]/Folic Acid (Multivitamin W/Minerals) 1 tab PO DAILY [facility] Last Admin: 11/20/19 08:22 Dose: 1 tab Documented by: Lactulose (Cephulac) 10 gm PO BID [facility] Last Admin: 11/20/19 08:24 Dose: 10 gm Documented by: Mupirocin (Bactroban Oint 2%) 1 dose NARES BID [facility] Last Admin: 11/20/19 08:24 Dose: 1 dose Documented by: Omeprazole (Prilosec) 20 mg PO BIDAC [facility] Last Admin: 11/20/19 08:22 Dose: 20 mg Documented by: Ondansetron HCl (Zofran) 4 mg IV Q4HP PRN; Protocol PRN Reason: Nausea And Vomiting Senna (Senokot) 2 tab PO HSP PRN PRN Reason: Constipation Sodium Chloride (Saline Flush) 10 ml IV Q8 [facility] Last Admin: 11/20/19 06:10 Dose: 10 ml Documented by: Spironolactone (Aldactone) 50 mg PO DAILY [facility] Last Admin: 11/20/19 08:23 Dose: 50 mg Documented by: Medical - PN: A/P - Time Spent With Patient Total time spent is greater than 50% in coordination of care (as documented) at patient's floor/unit and/or counseling patient: 25 - 35 minutes (1) Encephalopathy acute Status: Acute Current Visit: Yes (2) End stage renal disease Status: Acute Current Visit: Yes (3) Type 2 diabetes mellitus with renal complication Status: Chronic Current Visit: No (4) Cirrhosis Status: Chronic Current Visit: No - Narrative A/P Narrative: Encephalopathy. Generally resolved. Suspect combination of hepatic encephalopathy, made worse by recent TIPS procedure and volume overload from renal failure. No evidence of sepsis, SBP ruled out. Plan: Continue with rifaximin and lactulose Continue furosemide and spironolactone to help prevent reaccumulation of ascites Follow-up final cultures, though suspicion for sepsis low at this point Continue PT Discharge planning ATN/dialysis dependent. Clarified with Dr. Garcia, he is hopeful she will have return of renal function. Underlying CKD. Received hemodialysis for volume overload evening. No dialysis yesterday or today. Plan: Continue diuretics, monitor volume status, creatinine. Anemia. Hemoglobin 6.8, 7.1 on follow-up yesterday. 1 unit of packed cells ordered, however patient has significant antibodies, may take some time for them to arrive. Recheck on hemoglobin today is up to 8.5. Plan: Cancel transfusion. Follow CBC. Type 2 diabetes. Full facility list obtained, the patient is on 25 units of long-acting insulin at bedtime. Plan: Continue renal/diabetic diet, Accu-Cheks, sliding scale insulin. Will add long-acting insulin if diet picks up and glucoses trend upward Cirrhosis. Noted to be idiopathic in past records. Past records also indicate a history of variceal banding. Had TIPS procedure done during prior hospitalization earlier this month secondary to recurrent ascites. Liver ultrasound suggest possible stenosis. Plan: Continue rifaximin and lactulose. Prophylaxis: Subcu heparin CODE STATUS: Discussed with her daughter, full code Medical - PN: Qual - Stroke Symptom Onset Unknown: No - VTE Deep Vein Thrombosis/Pulmonary Embolism Present on Admission: No
[2019-11-20] MEDS: ONDANSETRON 4 MG/2 ML VIAL IV PRN (17:20)
[2019-11-21] MEDS: 0.9 % SODIUM CHLORIDE 10 ML SYRINGE IV SCH ×3 (04:14→21:37)
[2019-11-21 06:30] LABS: Basophils # (Auto) 0.02 K/mcL (0.00-0.30); Basophils % (Auto) 0.8 % (0.0-2.0); Eosinophils # (Auto) 0.13 K/mcL (0.00-0.70); Hematocrit 22.5 % (34.1-44.9); Hemoglobin 7.6 g/dL (11.2-15.7); Lymphocytes # (Auto) 0.52 K/mcL (1.50-4.80); Lymphocytes % (Auto) 20.1 % (15.5-49.0); Mean Cell Volume 85.2 fL (80.0-100.0); Mean Corpuscular HGB Conc 33.8 g/dL (31.0-36.0); Mean Platelet Volume 10.4 fL (7.4-10.4); Monocytes # (Auto) 0.39 K/mcL (0.10-0.90); Monocytes % (Auto) 15.1 % (1.0-12.0); RBC 2.64 M/mcL (3.59-5.38); Red Cell Distribution Width 15.2 % (11.5-14.5); WBC 2.6 K/mcL (4.50-11.00)
[2019-11-21 06:38] LABS: ALT/SGPT 16 U/l (0-40); AST/SGOT 43 U/l (0-37); Albumin 2.3 gm/dL (3.2-5.2); Alkaline Phosphatase 125 U/L (39-117); Bilirubin,Direct 0.3 mg/dL (0.0-0.3); Calcium 7.6 mg/dl (8.6-10.4); Carbon Dioxide 25 mmol/L (22-30); Globulin 2.4 gm/dL (2.2-3.7); Glomerular Filtration Rate 13; Glucose 129 mg/dL (70-105); Lactate Dehydrogenase 329 U/L (94-250); Phosphorous 4.3 mg/dL (2.7-4.5); Triglycerides 49 mg/dl (<150); Uric Acid 4.8 mg/dL (2.5-8.0)
[2019-11-21 06:39] LABS: Blood Urea Nitrogen 40 mg/dl (8-23); Chloride 95 mmol/L (96-108)
[2019-11-21 07:12] LABS: Platelet Count 53 K/mcL (140-440)
[2019-11-21] MEDS: OMEPRAZOLE 20 MG CAPSULE PO SCH ×2 (08:01→17:38)
[2019-11-21] MEDS: INSULIN LISPRO 1 UNIT/0.01 ML UNIT SQ SCH ×4 (08:02→22:16)
[2019-11-21] MEDS: MUPIROCIN OINT 2% 22GM NARES SCH ×2 (08:55→21:35)
[2019-11-21] MEDS: MULTIVIT,THER IRON,CA,FA & MIN 1 TABLET PO SCH (08:56)
[2019-11-21] MEDS: RIFAXIMIN 550 MG TABLET PO SCH ×2 (08:56→21:37)
[2019-11-21] MEDS: ESCITALOPRAM 10 MG TABLET PO SCH (08:56)
[2019-11-21] MEDS: CALCIUM CARBONATE 500 MG TAB.CHEW CHEWED SCH ×3 (08:56→21:36)
[2019-11-21] MEDS: FUROSEMIDE 80 MG TABLET PO SCH (08:56)
[2019-11-21] MEDS: FERROUS GLUCONATE 324 MG TABLET PO SCH (08:56)
[2019-11-21] MEDS: LACTULOSE 20 GM/30 ML ORAL.SOL PO SCH ×2 (08:56→21:35)
[2019-11-21] MEDS: HEPARIN 5,000 UNIT/ML VIAL SQ SCH ×2 (08:57→21:36)
[2019-11-21] MEDS: DOCUSATE SODIUM 100 MG CAPSULE PO SCH ×2 (08:57→21:36)
[2019-11-21] MEDS: SPIRONOLACTONE 25 MG TABLET PO SCH (08:57)
--- NOTE | 2019-11-21 15:57 | Internal Med Progress Note ---
Medical - PN: Subj Patient information: Note initiated : 11/21/19 at 3:55 pm Service Date, if different from initiated Date: [] Patient: Rosita Rodriguez a 74 y/o F admitted on 11/18/19 for End stage renal disease. Chief Complaint: [] Interval history: 11/18 Ms. Rodriguez is a 74 year old F with a history of cirrhosis as well as chronic kidney disease/new end-stage renal disease and dialysis, type 2 diabetes who presented to the emergency department at [facility] today with altered mental status. History is obtained in speaking with Dr. Kong from the [place] ED. The patient's recent past history includes an admission at [facility] on 11/04 where she presented with significant abdominal ascites and new acute on chronic renal failure. During that hospitalization she had paracenteses, eventually had a TIPS placed secondary to rapidly reaccumulating ascites. She was seen in consultation by nephrology, subsequently required hemodialysis and is had a tunneled catheter placed. She is now on 3 times a week dialysis with apparently new end-stage renal disease. 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 Yesterday, the patient's daughter reported at [facility] that she was alert and appropriate in her usual self. This morning, her daughter went to medicinal plant picker the patient to take her to a doctor's appointment and she had altered mental status, she was lethargic and somnolent. At [facility] her GCS was between 9 and 10, she opened her eyes, but was nonverbal. Evaluation there revealed mildly depressed white count of 3.6, normal electrolytes, and ammonia of 35. Urine analysis was negative for evidence of infection. Chest x-ray showed low lung volumes and head CT showed nonspecific aging changes. 11/19 Feels significantly improved with this morning. Daughter states she is very close to her baseline. She does not recall much of the events of yesterday. Hemoglobin 6.8 this morning, rechecking to rule out lab error. Had paracentesis of 5.5 L yesterday, 2 L ultrafiltration during dialysis. Discussed with Dr. Garcia this morning, will place on diuretics to help prevent reaccumulation of ascites. He is hopeful she will have recovery of renal function, suspect ATN and not definitive for ESRD at this point. Does not need dialysis this morning. Continues to do well. Abdomen remains soft and nondistended. Feels like she is about at her baseline. Tolerating diuretics. She was concerned that spironolactone because diarrhea, though that seems difficult to tease out as she is also on lactulose. 11/20 Patient is complaining of what she calls "kidney pain", by which she seems to be describing pain associated with recurrent abdominal distention. Remains awake and alert. Only had a couple small smears in way of bowel movements. Appetite remains good. - Constitutional Vitals: Vital Signs Temp Pulse Resp BP Pulse Ox 99.4 F H 69 18 130/53 100 11/21/19 12:00 11/21/19 12:00 11/21/19 12:00 11/21/19 12:00 11/21/19 12:00 Period Temp Pulse Resp BP Sys/Singh Pulse Ox Last 24 Hr 98.0 F-99.4 F 60-69 16-18 113-133/49-57 96-100 Intake and Output 11/21/19 11/21/19 11/21/19 05:59 13:59 21:59 Intake Total 330 200 Balance 330 200 Intake & Output: Intake & Output 11/21/19 11/21/19 11/21/19 05:59 13:59 21:59 Intake Total 330 200 Balance 330 200 Intake: Oral 330 200 Other: Meal Lunch Percent of Meal Consumed 100% Feeding Ability Independent Urine Appearance Clear Urine Color Bright Yellow Urine Odor Normal Stool Size Smear Stool Color Brown Stool Consistency Loose # Voids 1 # Bowel Movements 1 Exam: General: Alert, oriented, nontoxic Chest: Clear Cardiovascular: Regular with 1/6 systolic murmur along left sternal border Abdomen: Bulging, distended, not a soft, dull to percussion except at midline. Neuro: Alert, oriented x3, no asterixis. Has been ambulatory. Medical - PN: Obj Da - Labs CBC & Chem 7: 11/21/19 05:17 11/21/19 05:17 Labs: Abnormal Lab Results 11/21/19 11/21/19 11/20/19 05:17 05:17 11:45 WBC 2.6 L 3.0 L RBC 2.64 L 2.94 L Hgb 7.6 L 8.5 L Hct 22.5 L 25.1 L RDW 15.2 H 15.5 H Plt Count 53 L 48 L* MPV 11.0 H [place] % (Auto) 15.1 H Gran # 1.53 L Lymph # (Auto) 0.52 L Sodium 128 L Chloride 95 L BUN 40 H Creatinine 3.3 H Glucose 129 H Hemoglobin A1c Calcium 7.6 L Phosphorus Total Bilirubin Direct Bilirubin GGT 45 H AST 43 H Alkaline Phosphatase 125 H Lactate Dehydrogenase 329 H Total Protein 4.7 L Albumin 2.3 L Albumin/Globulin Ratio 11/20/19 11/19/19 11/19/19 05:13 16:57 05:03 WBC 2.4 L RBC 2.50 L Hgb 7.1 L Hct 21.8 L RDW 15.9 H Plt Count 58 L MPV 10.5 H [place] % (Auto) Gran # Lymph # (Auto) Sodium 130 L Chloride 95 L BUN 33 H Creatinine 3.0 H 2.1 H Glucose 156 H Hemoglobin A1c Calcium 7.7 L 7.7 L Phosphorus Total Bilirubin 1.1 H Direct Bilirubin 0.4 H GGT 41 H 42 H AST 48 H 49 H Alkaline Phosphatase 126 H 121 H Lactate Dehydrogenase 317 H 329 H Total Protein 4.5 L 4.7 L Albumin 2.3 L 2.2 L Albumin/Globulin Ratio 0.9 L 11/19/19 11/18/19 11/18/19 05:02 17:39 17:39 WBC 1.9 L 3.0 L RBC 2.29 L 3.08 L Hgb 6.5 L* 8.6 L Hct 19.7 L* 25.8 L RDW 16.0 H 16.2 H Plt Count 51 L 71 L MPV [place] % (Auto) 12.2 H Gran # 1.17 L Lymph # (Auto) 0.39 L 0.54 L Sodium Chloride BUN 47 H Creatinine 3.2 H Glucose 120 H Hemoglobin A1c 7.5 H Calcium 8.5 L Phosphorus 5.4 H Total Bilirubin 1.4 H Direct Bilirubin 0.5 H GGT 51 H AST 55 H Alkaline Phosphatase 159 H Lactate Dehydrogenase 386 H Total Protein 5.4 L Albumin 2.7 L Albumin/Globulin Ratio Meds: Medications Acetaminophen (Tylenol) 650 mg PO Q6HP PRN; Protocol PRN Reason: Per Pain Protocol/Fever > 101 Calcium Carbonate/Glycine (Tums) 2,000 mg CHEWED TID [facility] Last Admin: 11/21/19 14:56 Dose: 2,000 mg Documented by: Dextrose (Dextrose 50%) 0 ml IV UD PRN PRN Reason: Hypoglycemia Diagnostic Test (Pha) (Accu-Chek) 1 each FS [facility] Last Admin: 11/21/19 11:10 Dose: 1 each Documented by: Docusate Sodium (Colace) 100 mg PO BID [facility] Last Admin: 11/21/19 08:57 Dose: Not Given Documented by: Escitalopram Oxalate (Lexapro) 10 mg PO DAILY [facility] Last Admin: 11/21/19 08:56 Dose: 10 mg Documented by: Ferrous Gluconate (Fergon) 324 mg PO QAM [facility] Last Admin: 11/21/19 08:56 Dose: 324 mg Documented by: Furosemide (Lasix) 80 mg PO DAILY [facility] Last Admin: 11/21/19 08:56 Dose: 80 mg Documented by: Glucose (Insta-Glucose) 15 gm PO PRN PRN PRN Reason: Hypoglycemia Heparin Sodium (Porcine) (Heparin) 5,000 unit SQ Q12 [facility] Last Admin: 11/21/19 08:57 Dose: Not Given Documented by: Insulin Human Lispro (Humalog) 0 unit SQ [facility]; Protocol Last Admin: 11/21/19 11:10 Dose: 3 units Documented by: Iron Carb/Multivit/[place]/Folic Acid (Multivitamin W/Minerals) 1 tab PO DAILY [facility] Last Admin: 11/21/19 08:56 Dose: 1 tab Documented by: Lactulose (Cephulac) 10 gm PO BID [facility] Last Admin: 11/21/19 08:56 Dose: 10 gm Documented by: Mupirocin (Bactroban Oint 2%) 1 dose NARES BID [facility] Last Admin: 11/21/19 08:55 Dose: 1 dose Documented by: Omeprazole (Prilosec) 20 mg PO BIDAC [facility] Last Admin: 11/21/19 08:01 Dose: 20 mg Documented by: Ondansetron HCl (Zofran) 4 mg IV Q4HP PRN; Protocol PRN Reason: Nausea And Vomiting Last Admin: 11/20/19 17:20 Dose: 4 mg Documented by: Senna (Senokot) 2 tab PO HSP PRN PRN Reason: Constipation Sodium Chloride (Saline Flush) 10 ml IV Q8 [facility] Last Admin: 11/21/19 14:56 Dose: 10 ml Documented by: Spironolactone (Aldactone) 50 mg PO DAILY [facility] Last Admin: 11/21/19 08:57 Dose: 50 mg Documented by: Medical - PN: A/P - Time Spent With Patient Total time spent is greater than 50% in coordination of care (as documented) at patient's floor/unit and/or counseling patient: Greater than 35 minutes (1) Encephalopathy acute Status: Acute Current Visit: Yes (2) End stage renal disease Status: Acute Current Visit: Yes (3) Type 2 diabetes mellitus with renal complication Status: Chronic Current Visit: No (4) Cirrhosis Status: Chronic Current Visit: No - Narrative A/P Narrative: Encephalopathy. Generally resolved. Suspect combination of hepatic encephalopathy, made worse by recent TIPS procedure and volume overload from renal failure. No evidence of sepsis, SBP ruled out. Plan: Continue with rifaximin and lactulose Follow-up final cultures, though suspicion for sepsis low at this point Continue PT Discharge planning Cirrhosis. Noted to be idiopathic in past records. Past records also indicate a history of variceal banding. Had TIPS procedure done during prior hos pitalization earlier this month secondary to recurrent ascites. Liver ultrasound suggest possible stenosis. Recurrent ascites on 11/20 with abdominal distention and bulging flanks and dullness to percussion. Plan: Repeat ultrasound-guided paracentesis Continue rifaximin and lactulose. Continue furosemide and spironolactone to help prevent reaccumulation of ascites Fluid restrict to 1500 mL/day ATN/dialysis dependent. Clarified with Dr. Garcia, he is hopeful she will have return of renal function. Underlying CKD. Received hemodialysis for volume overload evening. No dialysis since then, no evidence of pulmonary edema, though ascites is recurring. Plan: Continue diuretics, monitor volume status, creatinine. Anemia. Hemoglobin 6.8, 7.1 on follow-up yesterday. 1 unit of packed cells ordered, however patient has significant antibodies, may take some time for them to arrive, did receive 1 unit early a.m. on with appropriate bump of hemoglobin to 8.5. Plan: Follow CBC. Type 2 diabetes. Full facility list obtained, the patient is on 25 units of long-acting insulin at bedtime. Plan: Continue renal/diabetic diet, Accu-Cheks, sliding scale insulin. Will add 10 units of Lantus at bedtime, glucose is trending upward Prophylaxis: Subcu heparin CODE STATUS: Discussed with her daughter, full code Medical - PN: Qual - Stroke Symptom Onset Unknown: No - VTE Deep Vein Thrombosis/Pulmonary Embolism Present on Admission: No
[2019-11-21] MEDS: ONDANSETRON 4 MG/2 ML VIAL IV PRN (19:07)
[2019-11-21] MEDS: INSULIN GLARGINE, HUMAN 1 UNIT/0.01 ML SQ SCH (21:36)
[2019-11-22 05:14] LABS: Basophils # (Auto) 0.03 K/mcL (0.00-0.30); Basophils % (Auto) 0.7 % (0.0-2.0); Eosinophils # (Auto) 0.17 K/mcL (0.00-0.70); Eosinophils % (Auto) 4.2 % (0.0-7.0); Granulocytes % (Auto) 67.1 % (38.0-78.0); Hematocrit 26.3 % (34.1-44.9); Lymphocytes % (Auto) 17.2 % (15.5-49.0); Mean Corpuscular HGB Conc 34.2 g/dL (31.0-36.0); Mean Platelet Volume 10.5 fL (7.4-10.4); Monocytes # (Auto) 0.44 K/mcL (0.10-0.90); Monocytes % (Auto) 10.8 % (1.0-12.0); Platelet Count 77 K/mcL (140-440); RBC 3.17 M/mcL (3.59-5.38); Red Cell Distribution Width 15.1 % (11.5-14.5); WBC 4.1 K/mcL (4.50-11.00)
[2019-11-22 05:18] LABS: INR 1.2 (0.9-1.1); Prothrombin Time 15.6 sec (11.9-14.5)
[2019-11-22 05:20] LABS: ALT/SGPT 20 U/l (0-40); AST/SGOT 49 U/l (0-37); Albumin 2.7 gm/dL (3.2-5.2); Alkaline Phosphatase 160 U/L (39-117); Bilirubin,Total 1.2 mg/dL (0.0-1.0); Blood Urea Nitrogen 44 mg/dl (8-23); Carbon Dioxide 22 mmol/L (22-30); Globulin 2.8 gm/dL (2.2-3.7); Glomerular Filtration Rate 12; Glucose 133 mg/dL (70-105); Lactate Dehydrogenase 388 U/L (94-250); Phosphorous 4.1 mg/dL (2.7-4.5); Triglycerides 83 mg/dl (<150); Uric Acid 5.5 mg/dL (2.5-8.0)
[2019-11-22 05:22] LABS: Bilirubin,Direct 0.4 mg/dL (0.0-0.3); Chloride 93 mmol/L (96-108)
[2019-11-22] MEDS: 0.9 % SODIUM CHLORIDE 10 ML SYRINGE IV SCH ×3 (05:58→23:22)
--- NOTE | 2019-11-22 06:56 | Internal Med Progress Note ---
Medical - PN: Subj Patient information: Note initiated : 11/22/19 at 6:53 am Service Date, if different from initiated Date: [] Patient: Rosita Rodriguez a 74 y/o F admitted on 11/18/19 for End stage renal disease. Chief Complaint: [] Interval history: 11/18 Ms. Rodriguez is a 74 year old F with a history of cirrhosis as well as chronic kidney disease/new end-stage renal disease and dialysis, type 2 diabetes who presented to the emergency department at [facility] today with altered mental status. History is obtained in speaking with Dr. Kong from the [place] [facility]. The patient's recent past history includes an admission at [facility] on 11/04 where she presented with significant abdominal ascites and new acute on chronic renal failure. During that hospitalization she had paracenteses, eventually had a TIPS placed secondary to rapidly reaccumulating ascites. She was seen in consultation by nephrology, subsequently required hemodialysis and is had a tunneled catheter placed. She is now on 3 times a week dialysis with apparently new end-stage renal disease. 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 Yesterday, the patient's daughter reported at [facility] that she was alert and appropriate in her usual self. This morning, her daughter went to pickup driver the patient to take her to a doctor's appointment and she had altered mental status, she was lethargic and somnolent. At [facility] her GCS was between 9 and 10, she opened her eyes, but was nonverbal. Evaluation there revealed mildly depressed white count of 3.6, normal electrolytes, and ammonia of 35. Urine analysis was negative for evidence of infection. Chest x-ray showed low lung volumes and head CT showed nonspecific aging changes. 11/19 Feels significantly improved with this morning. Daughter states she is very close to her baseline. She does not recall much of the events of yesterday. Hemoglobin 6.8 this morning, rechecking to rule out lab error. Had paracentesis of 5.5 L yesterday, 2 L ultrafiltration during dialysis. Discussed with Dr. Garcia this morning, will place on diuretics to help prevent reaccumulation of ascites. He is hopeful she will have recovery of renal function, suspect ATN and not definitive for ESRD at this point. Does not need dialysis this morning. Continues to do well. Abdomen remains soft and nondistended. Feels like she is about at her baseline. Tolerating diuretics. She was concerned that spironolactone because diarrhea, though that seems difficult to tease out as she is also on lactulose. 11/20 Patient is complaining of what she calls "kidney pain", by which she seems to be describing pain associated with recurrent abdominal distention. Remains awake and alert. Only had a couple small smears in way of bowel movements. Appetite remains good. 11/21 Called to see patient at 0500, she had had fairly abrupt change in level of co nsciousness between rounding at 2 AM, sleeping at 3 AM, not able to arouse at 4 AM. Code stroke was called. CT shows atrophy, chronic changes, no hemorrhage. Labs notable for increasing creatinine. White count normal. She is afebrile. Similar to her presentation on 11/18 at [facility] ED, though she was minimally verbal at that time. - Constitutional Vitals: Vital Signs Temp Pulse Resp BP Pulse Ox 98.0 F 72 14 138/51 100 11/22/19 04:06 11/22/19 04:17 11/22/19 04:17 11/22/19 04:06 11/22/19 04:17 Period Temp Pulse Resp BP Sys/Singh Pulse Ox Last 24 Hr 98.0 F-99.4 F 60-72 14-18 118-142/49-61 96-100 Intake and Output 11/21/19 11/22/19 11/22/19 21:59 05:59 13:59 Intake Total 1280 0 Balance 1280 0 Weight 198 lb 3.2 oz Intake & Output: Intake & Output 11/21/19 11/22/19 11/22/19 21:59 05:59 13:59 Intake Total 1280 0 Balance 1280 0 Weight 198 lb 3.2 oz Intake: Oral 1280 0 Other: Meal Dinner Percent of Meal Consumed 100% Feeding Ability Independent Stool Size Moderate Large Stool Color Brown Yellow Yellow Stool Consistency Loose Loose # Voids 1 1 # of times incontinent of 1 1 Bowels Exam: General: Eyes closed does not arouse to shake or shout. Chest: Few basal crackles, normal respiratory rate and depth Cardiovascular: Regular, no edema Abdomen: Distended, soft, dull to percussion. Neuro: Eyes closed, pupils equal when checked, does not arouse to shout or rub. Occasional minor spontaneous move of upper extremities. Medical - PN: Obj Da - Labs CBC & Chem 7: 11/22/19 04:26 11/22/19 04:25 Labs: Abnormal Lab Results 11/22/19 11/22/19 11/22/19 05:25 04:25 04:25 WBC 4.1 L RBC 3.17 L Hgb 9.0 L Hct 26.3 L RDW 15.1 H Plt Count 77 L MPV 10.5 H [place] % (Auto) Gran # Lymph # (Auto) 0.70 L PT 15.6 H INR 1.2 H Sodium Chloride BUN Creatinine Glucose Calcium Total Bilirubin Direct Bilirubin GGT AST Alkaline Phosphatase Ammonia 177 H Lactate Dehydrogenase Total Protein Albumin Albumin/Globulin Ratio 11/22/19 11/21/19 11/21/19 04:25 05:17 05:17 WBC 2.6 L RBC 2.64 L Hgb 7.6 L Hct 22.5 L RDW 15.2 H Plt Count 53 L MPV [place] % (Auto) 15.1 H Gran # 1.53 L Lymph # (Auto) 0.52 L PT INR Sodium 128 L 128 L Chloride 93 L 95 L BUN 44 H 40 H Creatinine 3.6 H 3.3 H Glucose 133 H 129 H Calcium 8.0 L 7.6 L Total Bilirubin 1.2 H Direct Bilirubin 0.4 H GGT 57 H 45 H AST 49 H 43 H Alkaline Phosphatase 160 H 125 H Ammonia Lactate Dehydrogenase 388 H 329 H Total Protein 5.5 L 4.7 L Albumin 2.7 L 2.3 L Albumin/Globulin Ratio 11/20/19 11/20/19 11/19/19 11:45 05:13 16:57 WBC 3.0 L 2.4 L RBC 2.94 L 2.50 L Hgb 8.5 L 7.1 L Hct 25.1 L 21.8 L RDW 15.5 H 15.9 H Plt Count 48 L* 58 L MPV 11.0 H 10.5 H [place] % (Auto) Gran # Lymph # (Auto) PT INR Sodium 130 L Chloride 95 L BUN 33 H Creatinine 3.0 H Glucose 156 H Calcium 7.7 L Total Bilirubin Direct Bilirubin GGT 41 H AST 48 H Alkaline Phosphatase 126 H Ammonia Lactate Dehydrogenase 317 H Total Protein 4.5 L Albumin 2.3 L Albumin/Globulin Ratio 11/19/19 11/19/19 05:03 05:02 WBC 1.9 L RBC 2.29 L Hgb 6.5 L* Hct 19.7 L* RDW 16.0 H Plt Count 51 L MPV [place] % (Auto) 12.2 H Gran # 1.17 L Lymph # (Auto) 0.39 L PT INR Sodium Chloride BUN Creatinine 2.1 H Glucose Calcium 7.7 L Total Bilirubin 1.1 H Direct Bilirubin 0.4 H GGT 42 H AST 49 H Alkaline Phosphatase 121 H Ammonia Lactate Dehydrogenase 329 H Total Protein 4.7 L Albumin 2.2 L Albumin/Globulin Ratio 0.9 L Meds: Medications Acetaminophen (Tylenol) 650 mg PO Q6HP PRN; Protocol PRN Reason: Per Pain Protocol/Fever > 101 Calcium Carbonate/Glycine (Tums) 2,000 mg CHEWED TID [facility] Last Admin: 11/21/19 21:36 Dose: 2,000 mg Documented by: Dextrose (Dextrose 50%) 0 ml IV UD PRN PRN Reason: Hypoglycemia Diagnostic Test (Pha) (Accu-Chek) 1 each FS [facility] Last Admin: 11/21/19 21:37 Dose: 1 each Documented by: Docusate Sodium (Colace) 100 mg PO BID [facility] Last Admin: 11/21/19 21:36 Dose: 100 mg Documented by: Escitalopram Oxalate (Lexapro) 10 mg PO DAILY [facility] Last Admin: 11/21/19 08:56 Dose: 10 mg Documented by: Ferrous Gluconate (Fergon) 324 mg PO QAM [facility] Last Admin: 11/21/19 08:56 Dose: 324 mg Documented by: Furosemide (Lasix) 80 mg PO DAILY [facility] Last Admin: 11/21/19 08:56 Dose: 80 mg Documented by: Glucose (Insta-Glucose) 15 gm PO PRN PRN PRN Reason: Hypoglycemia Heparin Sodium (Porcine) (Heparin) 5,000 unit SQ Q12 [facility] Last Admin: 11/21/19 21:36 Dose: Not Given Documented by: Insulin Glargine (Lantus) 10 unit SQ [facility] Last Admin: 11/21/19 21:36 Dose: 10 units Documented by: Insulin Human Lispro (Humalog) 0 unit SQ [facility]; Protocol Last Admin: 11/21/19 22:16 Dose: 1 units Documented by: Iron Carb/Multivit/Shells Inspector/Folic Acid (Multivitamin W/Minerals) 1 tab PO DAILY [facility] Last Admin: 11/21/19 08:56 Dose: 1 tab Documented by: Lactulose (Cephulac) 10 gm PO BID [facility] Last Admin: 11/21/19 21:35 Dose: 10 gm Documented by: Mupirocin (Bactroban Oint 2%) 1 dose NARES BID [facility] Last Admin: 11/21/19 21:35 Dose: 1 dose Documented by: Omeprazole (Prilosec) 20 mg PO BIDAC [facility] Last Admin: 11/21/19 17:38 Dose: 20 mg Documented by: Ondansetron HCl (Zofran) 4 mg IV Q4HP PRN; Protocol PRN Reason: Nausea And Vomiting Last Admin: 11/21/19 19:07 Dose: 4 mg Documented by: Senna (Senokot) 2 tab PO HSP PRN PRN Reason: Constipation Sodium Chloride (Saline Flush) 10 ml IV Q8 [facility] Last Admin: 11/22/19 05:58 Dose: 10 ml Documented by: Spironolactone (Aldactone) 50 mg PO DAILY [facility] Last Admin: 11/21/19 08:57 Dose: 50 mg Documented by: Medical - PN: A/P - Time Spent With Patient Total time spent is greater than 50% in coordination of care (as documented) at patient's floor/unit and/or counseling patient: Greater than 35 minutes (1) Encephalopathy acute Status: Acute Current Visit: Yes (2) End stage renal disease Status: Acute Current Visit: Yes (3) Type 2 diabetes mellitus with renal complication Status: Chronic Current Visit: No (4) Cirrhosis Status: Chronic Current Visit: No - Narrative A/P Narrative: Encephalopathy. Worsened on 11/21. Ammonia elevated 177, suspect this is co mbination of hepatic encephalopathy, some contribution to her renal failure as well. Last dialysis evening. Has reaccumulated ascites on exam. Ultrasound-guided paracentesis has again been ordered. No leukocytosis, suspect this is decompensation related to TIPS and not SBP or GI bleed. Plan: Continue with rifaximin and lactulose if able to take p.o. Either NGT with lactulose or lactulose retention enemas Continue to follow-up final cultures, though suspicion for sepsis low at this point Likely needs dialysis today Continue PT Discharge planning Cirrhosis. Noted to be idiopathic in past records. Past records also indicate a history of variceal banding. Had TIPS procedure done during prior hospitalization earlier in October secondary to recurrent ascites. Liver ultra sound suggest possible stenosis. Recurrent ascites on 11/20 and 11/21 with abdominal distention and bulging flanks and dullness to percussion. Plan: Repeat ultrasound-guided paracentesis ordered Continue rifaximin and lactulose, possibly via NGT or [place], as above Continue furosemide and spironolactone to help prevent reaccumulation of ascites Fluid restrict to 1500 mL/day ATN/dialysis dependent. Clarified with Dr. Garcia, he is hopeful she will have return of renal function. Underlying CKD. Received hemodialysis for volume overload evening. No dialysis since then, no evidence of pulmonary edema, though ascites is recurring. Plan: Continue diuretics, monitor volume status, creatinine, suspect will need dialysis today Anemia. Hemoglobin 6.8, 7.1 on follow-up yesterday. 1 unit of packed cells ordered, however patient has significant antibodies, may take some time for them to arrive, did receive 1 unit early a.m. on with appropriate bump of hemoglobin to 8.5. Plan: Follow CBC, stable Type 2 diabetes. Full facility list obtained, the patient is on 25 units of long-acting insulin at bedtime. Plan: Continue renal/diabetic diet, Accu-Cheks, sliding scale insulin. Will add 10 units of Lantus at bedtime, glucose is trending upward Prophylaxis: Subcu heparin CODE STATUS: Discussed with her daughter, full code Medical - PN: Qual - Stroke Symptom Onset Unknown: No - VTE Deep Vein Thrombosis/Pulmonary Embolism Present on Admission: No
--- NOTE | 2019-11-22 07:48 | Cat Scan Report ---
History: Stroke symptoms TECHNIQUE: The brain was imaged without contrast at 2.5 mm intervals. Radiation exposure was limited using dose reduction technology. FINDINGS: There are age-related degenerative changes with mild generalized atrophy throughout the brain. There is a 3 x 5 mm CSF filled space along the inferior border of the left basal ganglia. This is probably a perivascular lacunar space and less likely an old infarct. No acute infarct is detected. There is no hemorrhage or mass effect. Patchy areas of decreased attenuation are present in the white matter throughout the frontal and parietal lobes. This may be due to age-related ischemia or degenerative process. No abnormal extra-axial fluid collection is present. The ventricles are normal in size. Patient has severe chronic sinusitis. The frontal and left maxillary sinuses are completely opacified. There is near complete opacification of the ethmoids and sphenoid sinus bilaterally. There is thickening of the wall of the maxilla bilaterally due to chronic sinusitis. There is no bone erosion. IMPRESSION: No evidence of an acute infarct or intracranial hemorrhage Age-related degenerative changes Severe chronic sinusitis Interpreted and Authenticated by: Florin Main 11/22/19
[2019-11-22] MEDS: LACTULOSE 20 GM/30 ML ORAL.SOL PR SCH ×3 (07:50→23:19)
[2019-11-22] MEDS: INSULIN LISPRO 1 UNIT/0.01 ML UNIT SQ SCH ×4 (10:24→23:23)
[2019-11-22] MEDS: LACTULOSE 20 GM/30 ML ORAL.SOL PO SCH ×3 (10:25→23:19)
[2019-11-22] MEDS: OMEPRAZOLE 20 MG CAPSULE PO SCH ×2 (10:25→17:22)
[2019-11-22] MEDS ORDERED: ALBUMIN HUMAN 25 GM/100 ML BAG IV ONE (12:13)
[2019-11-22] MEDS: HEPARIN 5,000 UNIT/ML VIAL SQ SCH ×2 (13:04→23:21)
[2019-11-22] MEDS: MUPIROCIN OINT 2% 22GM NARES SCH ×2 (13:13→23:20)
--- NOTE | 2019-11-22 13:20 | Internal Med Progress Note ---
Medical - PN: Subj Patient information: Note initiated : 11/22/19 at 1:13 pm Service Date, if different from initiated Date: [] Patient: Rosita Rodriguez a 74 y/o F admitted on 11/18/19 for End stage renal disease. Chief Complaint: [] Interval history: 11/18 Ms. Rodriguez is a 74 year old F with a history of cirrhosis as well as chronic kidney disease/new end-stage renal disease and dialysis, type 2 diabetes who presented to the emergency department at [facility] today with altered mental status. History is obtained in speaking with Dr. Kong from the [place] ED. The patient's recent past history includes an admission at [facility] on 11/04 where she presented with significant abdominal ascites and new acute on chronic renal failure. During that hospitalization she had paracenteses, eventually had a TIPS placed secondary to rapidly reaccumulating ascites. She was seen in consultation by nephrology, subsequently required hemodialysis and is had a tunneled catheter placed. She is now on 3 times a week dialysis with apparently new end-stage renal disease. 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 Yesterday, the patient's daughter reported at [facility] that she was alert and appropriate in her usual self. This morning, her daughter went to case picker the patient to take her to a doctor's appointment and she had altered mental status, she was lethargic and somnolent. At [facility] her GCS was between 9 and 10, she opened her eyes, but was nonverbal. Evaluation there revealed mildly depressed white count of 3.6, normal electrolytes, and ammonia of 35. Urine analysis was negative for evidence of infection. Chest x-ray showed low lung volumes and head CT showed nonspecific aging changes. 11/19 Feels significantly improved with this morning. Daughter states she is very close to her baseline. She does not recall much of the events of yesterday. Hemoglobin 6.8 this morning, rechecking to rule out lab error. Had paracentesis of 5.5 L yesterday, 2 L ultrafiltration during dialysis. Discussed with Dr. Garcia this morning, will place on diuretics to help prevent reaccumulation of ascites. He is hopeful she will have recovery of renal function, suspect ATN and not definitive for ESRD at this point. Does not need dialysis this morning. Continues to do well. Abdomen remains soft and nondistended. Feels like she is about at her baseline. Tolerating diuretics. She was concerned that spironolactone because diarrhea, though that seems difficult to tease out as she is also on lactulose. 11/20 Patient is complaining of what she calls "kidney pain", by which she seems to be describing pain associated with recurrent abdominal distention. Remains awake and alert. Only had a couple small smears in way of bowel movements. Appetite remains good. 11/21 Called to see patient at 0500, she had had fairly abrupt change in level of c onsciousness between rounding at 2 AM, sleeping at 3 AM, not able to arouse at 4 AM. Code stroke was called. CT shows atrophy, chronic changes, no hemorrhage. Labs notable for increasing creatinine. White count normal. She is afebrile. Similar to her presentation on 11/18 at [facility] ED, though she was minimally verbal at that time. - Constitutional Vitals: Vital Signs Temp Pulse Resp BP Pulse Ox 96.9 F L 82 14 132/62 99 11/22/19 08:00 11/22/19 08:00 11/22/19 08:00 11/22/19 08:00 11/22/19 08:00 Period Temp Pulse Resp BP Sys/Singh Pulse Ox Last 24 Hr 96.9 F-98.8 F 62-82 14-18 126-142/51-62 96-100 Intake and Output 11/21/19 11/22/19 11/22/19 21:59 05:59 13:59 Intake Total 1280 0 Balance 1280 0 Weight 89.902 kg Intake & Output: Intake & Output 11/21/19 11/22/19 11/22/19 21:59 05:59 13:59 Intake Total 1280 0 Balance 1280 0 Weight 89.902 kg Intake: Oral 1280 0 Other: Meal Dinner Percent of Meal Consumed 100% Feeding Ability Independent Stool Size Moderate Large Moderate Stool Color Brown Yellow Brown Yellow Stool Consistency Loose Loose Liquid Loose # Voids 1 1 # Bowel Movements 1 # of times incontinent of 1 1 Bowels Exam: General: Alert, Awake, No acute Distress Eyes/N/T: EOMI, Head/Neck: neck supple, CV: RRR, No murmurs, Pulm: bibase rales mild, no wheezing/rhonchi/rales Abd: distended, soft, +BS x4 Ext: no clubbing/cyanosis/edema Neuro: Skin: warm/dry Medical - PN: Obj Da - Labs CBC & Chem 7: 11/22/19 04:26 11/22/19 04:25 Labs: Abnormal Lab Results 11/22/19 11/22/19 11/22/19 05:25 04:25 04:25 WBC 4.1 L RBC 3.17 L Hgb 9.0 L Hct 26.3 L RDW 15.1 H Plt Count 77 L MPV 10.5 H [place] % (Auto) Gran # Lymph # (Auto) 0.70 L PT 15.6 H INR 1.2 H Sodium Chloride BUN Creatinine Glucose Calcium Total Bilirubin Direct Bilirubin GGT AST Alkaline Phosphatase Ammonia 177 H Lactate Dehydrogenase Total Protein Albumin 11/22/19 11/21/19 11/21/19 04:25 05:17 05:17 WBC 2.6 L RBC 2.64 L Hgb 7.6 L Hct 22.5 L RDW 15.2 H Plt Count 53 L MPV [place] % (Auto) 15.1 H Gran # 1.53 L Lymph # (Auto) 0.52 L PT INR Sodium 128 L 128 L Chloride 93 L 95 L BUN 44 H 40 H Creatinine 3.6 H 3.3 H Glucose 133 H 129 H Calcium 8.0 L 7.6 L Total Bilirubin 1.2 H Direct Bilirubin 0.4 H GGT 57 H 45 H AST 49 H 43 H Alkaline Phosphatase 160 H 125 H Ammonia Lactate Dehydrogenase 388 H 329 H Total Protein 5.5 L 4.7 L Albumin 2.7 L 2.3 L 11/20/19 11/20/19 11/19/19 11:45 05:13 16:57 WBC 3.0 L 2.4 L RBC 2.94 L 2.50 L Hgb 8.5 L 7.1 L Hct 25.1 L 21.8 L RDW 15.5 H 15.9 H Plt Count 48 L* 58 L MPV 11.0 H 10.5 H [place] % (Auto) Gran # Lymph # (Auto) PT INR Sodium 130 L Chloride 95 L BUN 33 H Creatinine 3.0 H Glucose 156 H Calcium 7.7 L Total Bilirubin Direct Bilirubin GGT 41 H AST 48 H Alkaline Phosphatase 126 H Ammonia Lactate Dehydrogenase 317 H Total Protein 4.5 L Albumin 2.3 L Meds: Medications Acetaminophen (Tylenol) 650 mg PO Q6HP PRN; Protocol PRN Reason: Per Pain Protocol/Fever > 101 Calcium Carbonate/Glycine (Tums) 2,000 mg CHEWED TID [facility] Last Admin: 11/21/19 21:36 Dose: 2,000 mg Documented by: Dextrose (Dextrose 50%) 0 ml IV UD PRN PRN Reason: Hypoglycemia Diagnostic Test (Pha) (Accu-Chek) 1 each FS ACHS [facility] Last Admin: 11/22/19 13:04 Dose: 1 each Documented by: Docusate Sodium (Colace) 100 mg PO BID [facility] Last Admin: 11/21/19 21:36 Dose: 100 mg Documented by: Escitalopram Oxalate (Lexapro) 10 mg PO DAILY [facility] Last Admin: 11/21/19 08:56 Dose: 10 mg Documented by: Ferrous Gluconate (Fergon) 324 mg PO QAM [facility] Last Admin: 11/21/19 08:56 Dose: 324 mg Documented by: Furosemide (Lasix) 80 mg PO DAILY [facility] Last Admin: 11/21/19 08:56 Dose: 80 mg Documented by: Glucose (Insta-Glucose) 15 gm PO PRN PRN PRN Reason: Hypoglycemia Heparin Sodium (Porcine) (Heparin) 5,000 unit SQ Q12 [facility] Last Admin: 11/22/19 13:04 Dose: 5,000 unit Documented by: Insulin Glargine (Lantus) 10 unit SQ HS [facility] Last Admin: 11/21/19 21:36 Dose: 10 units Documented by: Insulin Human Lispro (Humalog) 0 unit SQ [facility]; Protocol Last Admin: 11/22/19 13:04 Dose: 2 units Documented by: Iron Carb/Multivit/[place]/Folic Acid (Multivitamin W/Minerals) 1 tab PO DAILY [facility] Last Admin: 11/21/19 08:56 Dose: 1 tab Documented by: Lactulose (Cephulac) 10 gm PO BID [facility] Last Admin: 11/22/19 10:25 Dose: Not Given Documented by: Lactulose (Cephulac) 200 gm [place] TID [facility] Last Admin: 11/22/19 07:50 Dose: 200 gm Documented by: Mupirocin (Bactroban Oint 2%) 1 dose NARES BID [facility] Last Admin: 11/21/19 21:35 Dose: 1 dose Documented by: Omeprazole (Prilosec) 20 mg PO BIDAC [facility] Last Admin: 11/22/19 10:25 Dose: Not Given Documented by: Ondansetron HCl (Zofran) 4 mg IV Q4HP PRN; Protocol PRN Reason: Nausea And Vomiting Last Admin: 11/21/19 19:07 Dose: 4 mg Documented by: Senna (Senokot) 2 tab PO HSP PRN PRN Reason: Constipation Sodium Chloride (Saline Flush) 10 ml IV Q8 [facility] Last Admin: 11/22/19 05:58 Dose: 10 ml Documented by: Spironolactone (Aldactone) 50 mg PO DAILY [facility] Last Admin: 11/21/19 08:57 Dose: 50 mg Documented by: Medical - PN: A/P - Time Spent With Patient Total time spent is greater than 50% in coordination of care (as documented) at patient's floor/unit and/or counseling patient: - Narrative A/P Narrative: A: *Encephalopathy, hepatic/uremic: -Last dialysis evening. -has reaccumulated ascites on examNo leukocytosis, suspect this is decompensation related to TIPS and not SBP or GI bleed. *Cirrhosis, Noted to be idiopathic in past records: Past records also indicate a history of variceal banding. -Had TIPS procedure done during prior hospitalization earlier in October secondary to recurrent ascites. Liver ultrasound suggest possible stenosis. -Recurrent ascites on 11/20 and 11/21 with abdominal distention and bulging flanks and dullness to percussion. -paracentesis of 4L (11/22) *ATN/dialysis dependent: Clarified with Dr. Garcia, he is hopeful she will have return of renal function. Underlying CKD. - *Anemia: -1 unit early a.m. on *Type 2 diabetes: 25 units of long-acting insulin at bedtime. P: -Ultrasound-guided paracentesis has again been ordered. -Continue with rifaximin and lactulose if able to take p.o.; Either NGT with lactulose or lactulose retention enemas Nephro for HD -Continue furosemide and spironolactone to help prevent reaccumulation of ascites Fluid restrict to 1500 mL/day -1 prbc -continue renal/diabetic diet, SSI. Will add 10 units of Lantus at bedtime, glucose is trending upward Continue PT/ot -Prophylaxis: Subcu heparin full code Medical - PN: Qual - Stroke Symptom Onset Unknown: No - VTE Deep Vein Thrombosis/Pulmonary Embolism Present on Admission: No
[2019-11-22] MEDS: ESCITALOPRAM 10 MG TABLET PO SCH (14:19)
[2019-11-22] MEDS: FERROUS GLUCONATE 324 MG TABLET PO SCH (14:19)
[2019-11-22] MEDS: RIFAXIMIN 550 MG TABLET PO SCH ×2 (14:19→23:20)
[2019-11-22] MEDS: MULTIVIT,THER IRON,CA,FA & MIN 1 TABLET PO SCH (14:20)
[2019-11-22] MEDS: CALCIUM CARBONATE 500 MG TAB.CHEW CHEWED SCH ×3 (14:20→23:18)
[2019-11-22] MEDS: SPIRONOLACTONE 25 MG TABLET PO SCH (14:28)
[2019-11-22] MEDS: DOCUSATE SODIUM 100 MG CAPSULE PO SCH ×2 (14:28→23:21)
[2019-11-22] MEDS: FUROSEMIDE 80 MG TABLET PO SCH (14:29)
--- NOTE | 2019-11-22 14:45 | Ultrasound Report ---
History: Recurrent ascites TECHNIQUE: The procedure and risks were explained. Large volume of ascites is seen within the abdomen and pelvis. The skin over the right lower quadrant was prepped with ChloraPrep and then anesthetized with 1% lidocaine. Using ultrasound guidance a Yueh needle was inserted into the fluid collection. 4.0 L of lisandra-colored fluid was removed and discarded. Nearly all of the visualized fluid was drained. She tolerated the procedure well without complication. The patient received albumin following the procedure. IMPRESSION: Successful paracentesis removing 4 L fluid Interpreted and Authenticated by: Florin Main 11/22/19
--- NOTE | 2019-11-22 16:08 | Nephrology Progress Note ---
Subjective Patient information: Note initiated : 11/22/19 at 4:05 pm Service Date, if different from initiated Date: [] Patient: Rosita Rodriguez 74 y/o F admitted on 11/18/19 for End stage renal disease. Chief Complaint: [] Obtunded. Had paracentesis. Objective - Vital Signs Vital signs: Vital Signs Temp Pulse Pulse Resp BP Pulse Ox 11/22/19 15:19 97.5 F 74 14 120/64 99 11/22/19 12:00 96.9 F L 72 16 130/66 100 11/22/19 08:00 96.9 F L 82 14 132/62 99 11/22/19 04:17 72 14 100 11/22/19 04:06 98.0 F 72 16 138/51 97 11/21/19 23:06 98.2 F 72 18 142/61 96 11/21/19 19:54 98.3 F 67 18 128/52 97 Intake and Output 11/22/19 11/22/19 11/22/19 05:59 13:59 21:59 Intake Total 0 100 480 Balance 0 100 480 Intake: IV 100 Oral 0 480 Other: Meal Lunch Percent of Meal Consumed 75% Feeding Ability Independent Stool Size Large Moderate Moderate Stool Color Yellow Brown Brown Yellow Stool Consistency Loose Liquid Liquid Loose # Voids 1 # Bowel Movements 1 # of times incontinent of 1 1 Bowels Intake & Output: Intake & Output 11/22/19 11/22/19 11/22/19 05:59 13:59 21:59 Intake Total 0 100 480 Balance 0 100 480 Intake: IV 100 Oral 0 480 Other: Meal Lunch Percent of Meal Consumed 75% Feeding Ability Independent Stool Size Large Moderate Moderate Stool Color Yellow Brown Brown Yellow Stool Consistency Loose Liquid Liquid Loose # Voids 1 # Bowel Movements 1 # of times incontinent of 1 1 Bowels - General Appearance General appearance: cachectic EENT: ATNC Neck: JVD Cardiology: no murmurs Gastrointestinal: hypoactive bowel sounds Integumentary: no rash Neurologic: no focal deficit - Lab 11/22/19 04:26 11/22/19 04:25 Most recent lab results Calcium 8.0 mg/dl (8.6-10.4) L 11/22/19 04:25 Phosphorus 4.1 mg/dL (2.7-4.5) 03/02/20 04:25 Magnesium 2.0 mg/dL (1.6-2.5) 11/22/19 04:25 Assessment and Plan (1) End stage renal disease Status: Acute Comment: Patient had BRADEN possibly from ATN, but so far no recovery of the kidneys. She is obtunded and that is possibly related to hepatic encephalopathy. She does appear slightly volume overloaded. Will dialyse today and remove 2 kilos of fluid.
[2019-11-22] MEDS: INSULIN GLARGINE, HUMAN 1 UNIT/0.01 ML SQ SCH (23:23)
[2019-11-23] MEDS: 0.9 % SODIUM CHLORIDE 10 ML SYRINGE IV SCH ×3 (04:47→22:56)
[2019-11-23 06:51] LABS: Basophils # (Auto) 0.02 K/mcL (0.00-0.30); Basophils % (Auto) 0.6 % (0.0-2.0); Eosinophils # (Auto) 0.06 K/mcL (0.00-0.70); Eosinophils % (Auto) 1.9 % (0.0-7.0); Granulocytes % (Auto) 69.6 % (38.0-78.0); Hematocrit 22.6 % (34.1-44.9); Hemoglobin 7.8 g/dL (11.2-15.7); Lymphocytes # (Auto) 0.49 K/mcL (1.50-4.80); Lymphocytes % (Auto) 15.2 % (15.5-49.0); Mean Cell Volume 83.4 fL (80.0-100.0); Mean Corpuscular HGB Conc 34.5 g/dL (31.0-36.0); Mean Platelet Volume 10.3 fL (7.4-10.4); Monocytes # (Auto) 0.41 K/mcL (0.10-0.90); Monocytes % (Auto) 12.7 % (1.0-12.0); Platelet Count 60 K/mcL (140-440); RBC 2.71 M/mcL (3.59-5.38); Red Cell Distribution Width 15.3 % (11.5-14.5); WBC 3.2 K/mcL (4.50-11.00)
--- NOTE | 2019-11-23 07:16 | Internal Med Progress Note ---
Medical - PN: Subj Patient information: Note initiated : 11/23/19 at 7:09 am Service Date, if different from initiated Date: [] Patient: Rosita Rodriguez a 74 y/o F admitted on 11/18/19 for End stage renal disease. Chief Complaint: [] Interval history: 11/18 Ms. Rodriguez is a 74 year old F with a history of cirrhosis as well as chronic kidney disease/new end-stage renal disease and dialysis, type 2 diabetes who presented to the emergency department at [facility] today with altered mental status. History is obtained in speaking with Dr. Kong from the [place] ED. The patient's recent past history includes an admission at [facility] on 11/04 where she presented with significant abdominal ascites and new acute on chronic renal failure. During that hospitalization she had paracenteses, eventually had a TIPS placed secondary to rapidly reaccumulating ascites. She was seen in consultation by nephrology, subsequently required hemodialysis and is had a tunneled catheter placed. She is now on 3 times a week dialysis with apparently new end-stage renal disease. 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 Yesterday, the patient's daughter reported at [facility] that she was alert and appropriate in her usual self. This morning, her daughter went to diamond picker the patient to take her to a doctor's appointment and she had altered mental status, she was lethargic and somnolent. At [facility] her GCS was between 9 and 10, she opened her eyes, but was nonverbal. Evaluation there revealed mildly depressed white count of 3.6, normal electrolytes, and ammonia of 35. Urine analysis was negative for evidence of infection. Chest x-ray showed low lung volumes and head CT showed nonspecific aging changes. 11/19 Feels significantly improved with this morning. Daughter states she is very close to her baseline. She does not recall much of the events of yesterday. Hemoglobin 6.8 this morning, rechecking to rule out lab error. Had paracentesis of 5.5 L yesterday, 2 L ultrafiltration during dialysis. Discussed with Dr. Garcia this morning, will place on diuretics to help prevent reaccumulation of ascites. He is hopeful she will have recovery of renal function, suspect ATN and not definitive for ESRD at this point. Does not need dialysis this morning. Continues to do well. Abdomen remains soft and nondistended. Feels like she is about at her baseline. Tolerating diuretics. She was concerned that spironolactone because diarrhea, though that seems difficult to tease out as she is also on lactulose. 11/20 Patient is complaining of what she calls "kidney pain", by which she seems to be describing pain associated with recurrent abdominal distention. Remains awake and alert. Only had a couple small smears in way of bowel movements. Appetite remains good. 11/21 Called to see patient at 0500, she had had fairly abrupt change in level of c onsciousness between rounding at 2 AM, sleeping at 3 AM, not able to arouse at 4 AM. Code stroke was called. CT shows atrophy, chronic changes, no hemorrhage. Labs notable for increasing creatinine. White count normal. She is afebrile. Similar to her presentation on 11/18 at [facility] ED, though she was minimally verbal at that time. 11/22 He much better today. Had dialysis and lactulose enemas yesterday. Sitting up eating breakfast. No new complaints. Overnight events. Slept well. Review of Systems: denies headache/fever/chills/nausea/vomiting/chest or abdominal pain/cough/dyspnea/. Otherwise see above. - Constitutional Vitals: Vital Signs Temp Pulse Resp BP Pulse Ox 98.1 F 72 16 105/41 97 11/23/19 04:05 11/23/19 04:05 11/23/19 04:05 11/23/19 04:05 11/23/19 04:05 Period Temp Pulse Resp BP Sys/Singh Pulse Ox Last 24 Hr 96.9 F-98.1 F 69-82 14-18 105-144/40-66 97-100 Intake and Output 11/22/19 11/23/19 11/23/19 21:59 05:59 13:59 Intake Total 480 490 Output Total 2230 400 Balance -1750 90 Weight 76.204 kg Intake & Output: Intake & Output 11/22/19 11/23/19 11/23/19 21:59 05:59 13:59 Intake Total 480 490 Output Total 2230 400 Balance -1750 90 Weight 76.204 kg Intake: Oral 480 490 Output: Void Amount 200 400 Stool 30 Hemodialysis UF 2000 Other: Meal Dinner Percent of Meal Consumed 75% Feeding Ability Independent Urine Appearance Clear Clear Urine Color Dark Gabby Straw Urine Odor Strong Strong Stool Size Small Large Stool Color Brown Green Yellow Stool Consistency Watery Watery # Bowel Movements 1 # of times incontinent of 1 1 Bowels Exam: General: Alert, Awake, No acute Distress Eyes/N/T: EOMI, Head/Neck: neck supple, CV: RRR, No murmurs, Pulm: bibase rales mild, no wheezing/rhonchi/rales Abd: distended, soft, +BS, 1+ b/l LE edema Neuro: Awake, moves all extremities, no focal deficits Skin: warm/dry Medical - PN: Obj Da - Labs CBC & Chem 7: 11/23/19 05:35 11/23/19 05:35 Labs: Abnormal Lab Results 11/23/19 11/22/19 11/22/19 05:35 05:25 04:25 WBC 3.2 L RBC 2.71 L Hgb 7.8 L Hct 22.6 L RDW 15.3 H Plt Count 60 L MPV Lymph % (Auto) 15.2 L Real % (Auto) 12.7 H Gran # Lymph # (Auto) 0.49 L PT 15.6 H INR 1.2 H Sodium Chloride BUN Creatinine Glucose Calcium Total Bilirubin Direct Bilirubin GGT AST Alkaline Phosphatase Ammonia 177 H Lactate Dehydrogenase Total Protein Albumin 11/22/19 11/22/19 11/21/19 04:25 04:25 05:17 WBC 4.1 L 2.6 L RBC 3.17 L 2.64 L Hgb 9.0 L 7.6 L Hct 26.3 L 22.5 L RDW 15.1 H 15.2 H Plt Count 77 L 53 L MPV 10.5 H Lymph % (Auto) Real % (Auto) 15.1 H Gran # 1.53 L Lymph # (Auto) 0.70 L 0.52 L PT INR Sodium 128 L Chloride 93 L BUN 44 H Creatinine 3.6 H Glucose 133 H Calcium 8.0 L Total Bilirubin 1.2 H Direct Bilirubin 0.4 H GGT 57 H AST 49 H Alkaline Phosphatase 160 H Ammonia Lactate Dehydrogenase 388 H Total Protein 5.5 L Albumin 2.7 L 11/21/19 11/20/19 11/20/19 05:17 11:45 05:13 WBC 3.0 L RBC 2.94 L Hgb 8.5 L Hct 25.1 L RDW 15.5 H Plt Count 48 L* MPV 11.0 H Lymph % (Auto) Real % (Auto) Gran # Lymph # (Auto) PT INR Sodium 128 L 130 L Chloride 95 L 95 L BUN 40 H 33 H Creatinine 3.3 H 3.0 H Glucose 129 H 156 H Calcium 7.6 L 7.7 L Total Bilirubin Direct Bilirubin GGT 45 H 41 H AST 43 H 48 H Alkaline Phosphatase 125 H 126 H Ammonia Lactate Dehydrogenase 329 H 317 H Total Protein 4.7 L 4.5 L Albumin 2.3 L 2.3 L Meds: Medications Acetaminophen (Tylenol) 650 mg PO Q6HP PRN; Protocol PRN Reason: Per Pain Protocol/Fever > 101 Calcium Carbonate/Glycine (Tums) 2,000 mg CHEWED TID [facility] Last Admin: 11/22/19 23:18 Dose: 2,000 mg Documented by: Dextrose (Dextrose 50%) 0 ml IV UD PRN PRN Reason: Hypoglycemia Diagnostic Test (Pha) (Accu-Chek) 1 each FS [facility] Last Admin: 11/23/19 07:00 Dose: 1 each Documented by: Docusate Sodium (Colace) 100 mg PO BID [facility] Last Admin: 11/22/19 23:21 Dose: Not Given Documented by: Escitalopram Oxalate (Lexapro) 10 mg PO DAILY [facility] Last Admin: 11/22/19 14:19 Dose: 10 mg Documented by: Ferrous Gluconate (Fergon) 324 mg PO QAM [facility] Last Admin: 11/22/19 14:19 Dose: 324 mg Documented by: Furosemide (Lasix) 80 mg PO DAILY [facility] Last Admin: 11/22/19 14:29 Dose: Not Given Documented by: Glucose (Insta-Glucose) 15 gm PO PRN PRN PRN Reason: Hypoglycemia Heparin Sodium (Porcine) (Heparin) 5,000 unit SQ Q12 [facility] Last Admin: 11/22/19 23:21 Dose: 5,000 unit Documented by: Insulin Glargine (Lantus) 10 unit SQ [facility] Last Admin: 11/22/19 23:23 Dose: 10 units Documented by: Insulin Human Lispro (Humalog) 0 unit SQ [facility]; Protocol Last Admin: 11/22/19 23:23 Dose: 3 units Documented by: Iron Carb/Multivit/Tractor Trailer Operator/Folic Acid (Multivitamin W/Minerals) 1 tab PO DAILY [facility] Last Admin: 11/22/19 14:20 Dose: 1 tab Documented by: Lactulose (Cephulac) 10 gm PO BID [facility] Last Admin: 11/22/19 23:19 Dose: 10 gm Documented by: Lactulose (Cephulac) 200 gm TN TID [facility] Last Admin: 11/22/19 23:19 Dose: 200 gm Documented by: Mupirocin (Bactroban Oint 2%) 1 dose NARES BID [facility] Last Admin: 11/22/19 23:20 Dose: 1 dose Documented by: Omeprazole (Prilosec) 20 mg PO BIDAC [facility] Last Admin: 11/22/19 17:22 Dose: 20 mg Documented by: Ondansetron HCl (Zofran) 4 mg IV Q4HP PRN; Protocol PRN Reason: Nausea And Vomiting Last Admin: 11/21/19 19:07 Dose: 4 mg Documented by: Senna (Senokot) 2 tab PO HSP PRN PRN Reason: Constipation Sodium Chloride (Saline Flush) 10 ml IV Q8 [facility] Last Admin: 11/23/19 04:47 Dose: 10 ml Documented by: Spironolactone (Aldactone) 50 mg PO DAILY [facility] Last Admin: 11/22/19 14:28 Dose: Not Given Documented by: Medical - PN: A/P - Time Spent With Patient Total time spent is greater than 50% in coordination of care (as documented) at patient's floor/unit and/or counseling patient: - Narrative A/P Narrative: A: *Encephalopathy, hepatic/uremic: improved -decompensation related to TIPS and not SBP or GI bleed. *Cirrhosis, Noted to be idiopathic in past records: Past records also indicate a history of variceal banding. -Had TIPS procedure done during prior hospitalization earlier in October secondary to recurrent ascites. Liver ultrasound suggest possible stenosis. -paracentesis of 4L (11/22) *ATN/dialysis dependent: Clarified with Dr. Garcia, he is hopeful she will have return of renal function. Underlying CKD. - *Anemia, chronic: -1 unit early a.m. on and 1 11/20 *Type 2 diabetes: -25 units of long-acting insulin at bedtime. P: -Continue with rifaximin and lactulose if able to take p.o.; Either NGT with lactulose or lactulose retention enemas -clarify recent lactulose orders at SNF prior to and after [facility] admit Nephro for HD -Continue furosemide and spironolactone to help prevent reaccumulation of ascites Fluid restrict to 1500 mL/day -monitor H&H -continue renal/diabetic diet, SSI. started Lantus qhs at 10 units Continue PT/ot -Prophylaxis: Subcu heparin full code Medical - PN: Qual - Stroke Symptom Onset Unknown: No - VTE Deep Vein Thrombosis/Pulmonary Embolism Present on Admission: No
[2019-11-23] MEDS: INSULIN LISPRO 1 UNIT/0.01 ML UNIT SQ SCH ×4 (07:22→22:53)
[2019-11-23 07:32] LABS: ALT/SGPT 16 U/l (0-40); AST/SGOT 39 U/l (0-37); Albumin 2.5 gm/dL (3.2-5.2); Alkaline Phosphatase 131 U/L (39-117); Calcium 7.8 mg/dl (8.6-10.4); Carbon Dioxide 24 mmol/L (22-30); Chloride 98 mmol/L (96-108); Globulin 2.4 gm/dL (2.2-3.7); Glucose 111 mg/dL (70-105); Lactate Dehydrogenase 353 U/L (94-250); Phosphorous 2.8 mg/dL (2.7-4.5); Triglycerides 40 mg/dl (<150)
[2019-11-23 07:46] LABS: Bilirubin,Direct 0.3 mg/dL (0.0-0.3); Blood Urea Nitrogen 21 mg/dl (8-23); Glomerular Filtration Rate 26
[2019-11-23] MEDS: OMEPRAZOLE 20 MG CAPSULE PO SCH ×2 (07:56→17:45)
--- NOTE | 2019-11-23 09:29 | Nephrology Progress Note ---
Subjective Patient information: Note initiated : 11/23/19 at 9:26 am Service Date, if different from initiated Date: [] Patient: Rosita Rodriguez 74 y/o F admitted on 11/18/19 for End stage renal disease. Chief Complaint: [] She is a lot better. Alert and having breakfast. Objective - Vital Signs Vital signs: Vital Signs Temp Pulse Pulse Pulse Resp BP BP 11/23/19 07:07 98.2 F 66 12 110/40 11/23/19 04:05 98.1 F 72 16 105/41 11/23/19 00:00 97.5 F 69 16 137/53 11/22/19 21:57 70 120/46 11/22/19 21:50 97.4 F 73 119/43 11/22/19 21:35 80 122/46 11/22/19 21:20 77 114/48 11/22/19 21:05 72 125/45 11/22/19 20:50 73 112/40 11/22/19 20:35 77 119/44 11/22/19 20:20 74 121/53 11/22/19 20:05 80 127/58 11/22/19 19:50 80 133/56 11/22/19 19:35 80 126/47 11/22/19 19:20 80 115/42 11/22/19 19:05 80 119/53 11/22/19 18:50 80 133/53 11/22/19 18:35 74 80 18 126/49 133/53 11/22/19 18:20 77 144/58 11/22/19 18:00 98.0 F 80 126/56 11/22/19 15:19 97.5 F 74 14 120/64 11/22/19 12:00 96.9 F L 72 16 130/66 Pulse Ox 11/23/19 07:07 97 11/23/19 04:05 97 11/23/19 00:00 100 11/22/19 21:57 11/22/19 21:50 11/22/19 21:35 11/22/19 21:20 11/22/19 21:05 11/22/19 20:50 11/22/19 20:35 11/22/19 20:20 11/22/19 20:05 11/22/19 19:50 11/22/19 19:35 11/22/19 19:20 11/22/19 19:05 11/22/19 18:50 11/22/19 18:35 11/22/19 18:20 11/22/19 18:00 11/22/19 15:19 99 11/22/19 12:00 100 Intake and Output 11/22/19 11/23/19 11/23/19 21:59 05:59 13:59 Intake Total 480 490 Output Total 2230 400 Balance -1750 90 Intake: Oral 480 490 Output: Void Amount 200 400 Stool 30 Hemodialysis UF 1999 Other: Meal Dinner Percent of Meal Consumed 75% Feeding Ability Independent Urine Appearance Clear Clear Urine Color Dark Gabby Straw Urine Odor Strong Strong Stool Size Small Large Stool Color Brown Green Yellow Stool Consistency Watery Watery # Bowel Movements 1 # of times incontinent of 1 1 Bowels Weight 168 lb Intake & Output: Intake & Output 11/22/19 11/23/19 11/23/19 21:59 05:59 13:59 Intake Total 480 490 Output Total 2230 400 Balance -1750 90 Weight 168 lb Intake: Oral 480 490 Output: Void Amount 200 400 Stool 30 Hemodialysis UF 1999 Other: Meal Dinner Percent of Meal Consumed 75% Feeding Ability Independent Urine Appearance Clear Clear Urine Color Dark Gabby Straw Urine Odor Strong Strong Stool Size Small Large Stool Color Brown Green Yellow Stool Consistency Watery Watery # Bowel Movements 1 # of times incontinent of 1 1 Bowels - General Appearance General appearance: cachectic EENT: ATNC Neck: no JVD Cardiology: no murmurs, no edema Gastrointestinal: normoactive bowel sounds Integumentary: no rash Neurologic: no focal deficit Musculoskeletal: no deformities - Lab 11/23/19 05:35 11/23/19 05:35 Most recent lab results Calcium 7.8 mg/dl (8.6-10.4) L 11/23/19 05:35 Phosphorus 2.8 mg/dL (2.7-4.5) 11/23/19 05:35 Magnesium 1.8 mg/dL (1.6-2.5) 11/23/19 05:35 Assessment and Plan (1) End stage renal disease Status: Acute Comment: Patient had BRADEN possibly from ATN, but so far no recovery of the kidneys. She was obtunded and that was possibly related to hepatic encephalopathy. She was treated for that and as well had dialysis. She did lot better. Will plan for dialysis tomorrow here if not discharged and can dialyse outpatient if she is discharged.
[2019-11-23] MEDS: SPIRONOLACTONE 25 MG TABLET PO SCH (10:17)
[2019-11-23] MEDS: ESCITALOPRAM 10 MG TABLET PO SCH (10:18)
[2019-11-23] MEDS: RIFAXIMIN 550 MG TABLET PO SCH ×2 (10:19→22:53)
[2019-11-23] MEDS: FUROSEMIDE 80 MG TABLET PO SCH (10:19)
[2019-11-23] MEDS: MULTIVIT,THER IRON,CA,FA & MIN 1 TABLET PO SCH (10:19)
[2019-11-23] MEDS: FERROUS GLUCONATE 324 MG TABLET PO SCH (10:19)
[2019-11-23] MEDS: CALCIUM CARBONATE 500 MG TAB.CHEW CHEWED SCH ×3 (10:19→22:52)
[2019-11-23] MEDS: HEPARIN 5,000 UNIT/ML VIAL SQ SCH ×2 (10:20→22:51)
[2019-11-23] MEDS: DOCUSATE SODIUM 100 MG CAPSULE PO SCH ×2 (10:34→22:57)
--- NOTE | 2019-11-23 11:06 | Discharge Summary ---
Medical - DS: Prov Patient information: Note initiated : 11/23/19 at 11:03 am Service Date, if different from initiated Date: [] Patient: Rosita Rodriguez 74 y/o F admitted on 11/18/19 for End stage renal disease. Chief Complaint: [] Date of admission: 11/18/19 16:19 Discharge date: 11/24/19 Primary care physician: Siria Mcgraw Consults: 11/18/19 Consult to Physician [CONS] Stat Comment: Consulting Provider: Rajat Garcia Reason For Exam: Physician to Consult Medical - DS: Meds - Discharge Medications Prescriptions: Lactulose [Cephulac] 30 gm PO DAILY PRN #20 oral.yudi PRN Reason: Constipation Lactulose [Cephulac] 20 gm PO TID #1 oral.yudi Active and Home Medications: Home Medications Multivit-Min/Iron/Folic Acid/K [Multi-Day Plus Minerals Tablet] 2 tab PO DAILY 08/21/17 [History Confirmed 11/19/19 Last Taken 11/18/19] Acetaminophen [Non-Aspirin] 650 mg PO Q4HP PRN 11/18/19 [History Confirmed 11/19/19 Last Taken 11/11/19 21:00] DULoxetine [Cymbalta] 60 mg PO DAILY 11/18/19 [History Last Taken Unknown] Furosemide [Lasix] 80 mg PO DAILY 11/18/19 [History Last Taken Unknown] Lactulose [Enulose] 10 gm PO BID 11/18/19 [History Confirmed 11/19/19 Last Taken 11/18/19] Lansoprazole [Prevacid 24Hr] 15 mg PO DAILY 11/18/19 [History Confirmed 11/18/19 Last Taken 11/18/19] Magnesium Hydroxide [Milk of Magnesia] 30 ml PO DAILYP PRN 11/18/19 [History Confirmed 11/18/19 Last Taken 11/11/19 20:00] Rifaximin [Xifaxan] 550 mg PO BID 11/18/19 [History Confirmed 11/18/19 Last Taken 11/18/19 09:00] Spironolactone 50 mg PO DAILY 11/18/19 [History Last Taken Unknown] Bisacodyl [Dulcolax] 10 mg RC DAILYP PRN 11/19/19 [History Confirmed 11/19/19 Last Taken Unknown] Calcium Carbonate [Tums] 2,000 mg CHEWED TIDCC 11/19/19 [History Confirmed 11/19/19 Last Taken 11/17/19] Escitalopram [Lexapro] 10 mg PO DAILY 11/19/19 [History Confirmed 11/19/19 Last Taken 11/18/19] Ferrous Gluconate [Fergon] 240 mg PO DAILY 11/19/19 [History Confirmed 11/19/19 Last Taken 11/18/19] Fluticasone Propionate [Flonase] 1 spray NS HS 11/19/19 [History Confirmed 11/19/19 Last Taken 11/17/19] Insulin Glargine, Human [Lantus] 25 unit SQ HS 11/19/19 [History Confirmed 11/19/19 Last Taken 11/17/19] Insulin Lispro [HumaLOG] 0 unit SQ ACHS 11/19/19 [History Confirmed 11/19/19 Last Taken 11/18/19] Ipratropium/Albuterol [Duoneb] 6 ml NEB DAILYP PRN 11/19/19 [History Confirmed 11/19/19 Last Taken Unknown] Na Phos,M-B/Na Phos,Di-Ba [Fleets Adult] 1 dose NM DAILYP PRN 11/19/19 [History Confirmed 11/19/19 Last Taken Unknown] Ubidecarenone [Coq-10] 200 mg PO DAILY 11/19/19 [History Confirmed 11/19/19 Last Taken 11/18/19] Home Medications Multivit-Min/Iron/Folic Acid/K [Multi-Day Plus Minerals Tablet] 2 tab PO DAILY 08/21/17 [History Confirmed 11/19/19 Last Taken 11/18/19] Acetaminophen [Non-Aspirin] 650 mg PO Q4HP PRN 11/18/19 [History Confirmed 11/19/19 Last Taken 11/11/19 21:00] DULoxetine [Cymbalta] 60 mg PO DAILY 11/18/19 [History Last Taken Unknown] Furosemide [Lasix] 80 mg PO DAILY 11/18/19 [History Last Taken Unknown] Lactulose [Enulose] 10 gm PO BID 11/18/19 [History Confirmed 11/19/19 Last Taken 11/18/19] Lansoprazole [Prevacid 24Hr] 15 mg PO DAILY 11/18/19 [History Confirmed 11/18/19 Last Taken 11/18/19] Magnesium Hydroxide [Milk of Magnesia] 30 ml PO DAILYP PRN 11/18/19 [History Confirmed 11/18/19 Last Taken 11/11/19 20:00] Rifaximin [Xifaxan] 550 mg PO BID 11/18/19 [History Confirmed 11/18/19 Last Taken 11/18/19 09:00] Spironolactone 50 mg PO DAILY 11/18/19 [History Last Taken Unknown] Bisacodyl [Dulcolax] 10 mg RC DAILYP PRN 11/19/19 [History Confirmed 11/19/19 Last Taken Unknown] Calcium Carbonate [Tums] 2,000 mg CHEWED TIDCC 11/19/19 [History Confirmed 11/19/19 Last Taken 11/17/19] Escitalopram [Lexapro] 10 mg PO DAILY 11/19/19 [History Confirmed 11/19/19 Last Taken 11/18/19] Ferrous Gluconate [Fergon] 240 mg PO DAILY 11/19/19 [History Confirmed 11/19/19 Last Taken 11/18/19] Fluticasone Propionate [Flonase] 1 spray NS HS 11/19/19 [History Confirmed 11/19/19 Last Taken 11/17/19] Insulin Glargine, Human [Lantus] 25 unit SQ HS 11/19/19 [History Confirmed 11/19/19 Last Taken 11/17/19] Insulin Lispro [Humalog] [address] [facility] 11/19/19 [History Confirmed 11/19/19 Last Taken 11/18/19] Ipratropium/Albuterol [Duoneb] 6 ml NEB DAILYP PRN 11/19/19 [History Confirmed 11/19/19 Last Taken Unknown] Na Phos,M-B/Na Phos,Di-Ba [Fleets Adult] 1 dose NM DAILYP PRN 11/19/19 [History Confirmed 11/19/19 Last Taken Unknown] Ubidecarenone [Coq-10] 200 mg PO DAILY 11/19/19 [History Confirmed 11/19/19 Last Taken 11/18/19] Lactulose [Cephulac] 20 gm PO TID #1 oral.yudi 11/23/19 [Rx Last Taken Unknown] Lactulose [Cephulac] 30 gm PO DAILY PRN #20 oral.yudi 11/23/19 [Rx Last Taken Unknown] Lactulose needs to be titrated to 2-3 soft bowel movements per day Medical - DS: Hosp Hospital Course: 11/18 Ms. Rodriguez is a 74 year old F with a history of cirrhosis as well as chronic kidney disease/new end-stage renal disease and dialysis, type 2 diabetes who presented to the emergency department at [facility] today with altered mental status. History is obtained in speaking with Dr. Kong from the [place] ED. The patient's recent past history includes an admission at [facility] on 11/04 where she presented with significant abdominal ascites and new acute on chronic renal failure. During that hospitalization she had paracenteses, eventually had a TIPS placed secondary to rapidly reaccumulating ascites. She was seen in consultation by nephrology, subsequently required hemodialysis and is had a tunneled catheter placed. She is now on 3 times a week dialysis with apparently new end-stage renal disease. 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 Yesterday, the patient's daughter reported at [facility] that she was alert and appropriate in her usual self. This morning, her daughter went to milk pickup truck driver the patient to take her to a doctor's appointment and she had altered mental status, she was lethargic and somnolent. At [facility] her GCS was between 9 and 10, she opened her eyes, but was nonverbal. Evaluation there revealed mildly depressed white count of 3.6, normal electrolytes, and ammonia of 35. Urine analysis was negative for evidence of infection. Chest x-ray showed low lung volumes and head CT showed nonspecific aging changes. 11/19 Feels significantly improved with this morning. Daughter states she is very close to her baseline. She does not recall much of the events of yesterday. Hemoglobin 6.8 this morning, rechecking to rule out lab error. Had paracentesis of 5.5 L yesterday, 2 L ultrafiltration during dialysis. Discussed with Dr. Garcia this morning, will place on diuretics to help prevent reaccumulation of ascites. He is hopeful she will have recovery of renal function, suspect ATN and not definitive for ESRD at this point. Does not need dialysis this morning. Continues to do well. Abdomen remains soft and nondistended. Feels like she is about at her baseline. Tolerating diuretics. She was concerned that spironolactone because diarrhea, though that seems difficult to tease out as she is also on lactulose. 11/20 Patient is complaining of what she calls "kidney pain", by which she seems to be describing pain associated with recurrent abdominal distention. Remains awake and alert. Only had a couple small smears in way of bowel movements. Appetite remains good. 11/21 Called to see patient at 0500, she had had fairly abrupt change in level of consciousness between rounding at 2 AM, sleeping at 3 AM, not able to arouse at 4 AM. Code stroke was called. CT shows atrophy, chronic changes, no hemorrhage. Labs notable for increasing creatinine. White count normal. She is afebrile. Similar to her presentation on 11/18 at [facility] ED, though she was minimally verbal at that time. 11/22 She feels much better today. Had dialysis and lactulose enemas yesterday. Sitting up eating breakfast. No new complaints. Overnight events. Slept well. 11/23 Overnight events. Good bowel movements yesterday. Follow-up H&H outpatient and as needed paracentesis as before and per PCP and GI. Given age and comorbidities patient is high risk for readmission. A: *Encephalopathy, hepatic/uremic: improved *Cirrhosis, Noted to be idiopathic in past records: Past records also indicate a history of variceal banding. -Had TIPS procedure done during prior hospitalization earlier in October secondary to recurrent ascites -reviewed liver u/s report about possible stenosis of stent with Dr. Avila who was less suspecting and only shuntogram would give accurate assessment -paracentesis of 4L (11/22) *ATN/dialysis dependent: Clarified with Dr. Garcia, he is hopeful she will have return of renal function. Underlying CKD. - *Anemia, chronic: -1 unit early a.m. on and 1 11/20 -f/u H&H outpt *Type 2 diabetes: -25 units of long-acting insulin at bedtime. Discharge diagnosis: Hepatic and uremic encephalopathy cirrhosis end-stage renal disease Secondary discharge diagnosis: Anemia diabetes - Time Spent with Patient Total time spent providing and/or coordinating discharge services: Greater than 30 minutes Medical - DS: Exam - Constitutional Vitals: Vital Signs Temp Pulse Pulse Pulse Resp BP BP 11/23/19 07:07 98.2 F 66 12 110/40 11/23/19 04:05 98.1 F 72 16 105/41 11/23/19 00:00 97.5 F 69 16 137/53 11/22/19 21:57 70 120/46 11/22/19 21:50 97.4 F 73 119/43 11/22/19 21:35 80 122/46 11/22/19 21:20 77 114/48 11/22/19 21:05 72 125/45 11/22/19 20:50 73 112/40 11/22/19 20:35 77 119/44 11/22/19 20:20 74 121/53 11/22/19 20:05 80 127/58 11/22/19 19:50 80 133/56 11/22/19 19:35 80 126/47 11/22/19 19:20 80 115/42 11/22/19 19:05 80 119/53 11/22/19 18:50 80 133/53 11/22/19 18:35 74 80 18 126/49 133/53 11/22/19 18:20 77 144/58 11/22/19 18:00 98.0 F 80 126/56 11/22/19 15:19 97.5 F 74 14 120/64 11/22/19 12:00 96.9 F L 72 16 130/66 Pulse Ox 11/23/19 07:07 97 11/23/19 04:05 97 11/23/19 00:00 100 11/22/19 21:57 11/22/19 21:50 11/22/19 21:35 11/22/19 21:20 11/22/19 21:05 11/22/19 20:50 11/22/19 20:35 11/22/19 20:20 11/22/19 20:05 11/22/19 19:50 11/22/19 19:35 11/22/19 19:20 11/22/19 19:05 11/22/19 18:50 11/22/19 18:35 11/22/19 18:20 11/22/19 18:00 11/22/19 15:19 99 11/22/19 12:00 100 Intake and Output 11/22/19 11/23/1920 21:59 05:59 13:59 Intake Total 480 490 Output Total 2230 400 Balance -1750 90 Intake: Oral 480 490 Output: Void Amount 200 400 Stool 30 Hemodialysis UF 2000 Other: Meal Dinner Percent of Meal Consumed 75% Feeding Ability Independent Urine Appearance Clear Clear Urine Color Dark Gabby Straw Urine Odor Strong Strong Stool Size Small Large Stool Color Brown Green Yellow Stool Consistency Watery Watery # Bowel Movements 1 # of times incontinent of 1 1 Bowels Weight 76.204 kg Medical - DS: Data Labs on day of discharge: Labs from last 24 hours 11/23/19 11/23/19 11/23/19 05:35 05:35 05:35 WBC 3.2 L RBC 2.71 L Hgb 7.8 L Hct 22.6 L MCV 83.4 MCH 28.8 MCHC 34.5 RDW 15.3 H Plt Count 60 L MPV 10.3 Gran % 69.6 Lymph % (Auto) 15.2 L [place] % (Auto) 12.7 H Eos % (Auto) 1.9 Baso % (Auto) 0.6 Gran # 2.25 Lymph # (Auto) 0.49 L [place] # (Auto) 0.41 Eos # (Auto) 0.06 Baso # (Auto) 0.02 Sodium 133 Potassium 4.0 Chloride 98 Carbon Dioxide 24 Anion Gap 11.0 BUN 21 Creatinine 1.9 H GFR Calculation 26 Glucose 111 H Uric Acid 3.0 Calcium 7.8 L Phosphorus 2.8 Magnesium 1.8 Total Bilirubin 1.0 Direct Bilirubin 0.3 GGT 44 H AST 39 H ALT 16 Alkaline Phosphatase 131 H Ammonia 46 Lactate Dehydrogenase 353 H Total Protein 4.9 L Albumin 2.5 L Globulin 2.4 Albumin/Globulin Ratio 1.0 Triglycerides 40 Preliminary micro results at discharge 11/18/19 17:52 Blood Culture - Preliminary Blood 11/18/19 17:39 Blood Culture - Preliminary Blood Medical - DS: A/P - Patient/Caregiver Discharge Instructions Activity: as per physical therapy Diet: Renal/Consistent Carbs Additional Instructions: Referral to see railway signal operator in 5 to 10 days for cirrhosis Prescriptions: Lactulose [Cephulac] 30 gm PO DAILY PRN #20 oral.yudi PRN Reason: Constipation Lactulose [Cephulac] 20 gm PO TID #1 oral.yudi - Follow up Plan Follow up with: Siria Mcgraw MD [Primary Care Provider] - 11/25/19 2:00 pm (Continue with your current appointment) Ron Salguero DPM [Physician] - (bilateral foot wounds) Rajat Garcia MD [Physician] - (Continue with your current schedule) Disposition: Xfer SNF Care Plan Goals: This discharge packet is provided to you to help keep you informed about your care. We want to ensure you get everything you need when you go home. You will also be receiving a call from us in a few days to follow up with you and see how you are doing since your discharge. This gives us a chance to listen to any concerns you maybe experiencing since you were discharged or any additional needs you may have, as well as providing us feedback on your care experience. We strive to always provide excellent care and thank you for your feedback and for choosing [facility]. Prognosis: Undetermined Rehab Potential: Fair I certify that the patient requires SNF services: Yes Overall status at discharge: patient is progressing back to baseline Medical - DS: Qual - VTE Deep Vein Thrombosis/Pulmonary Embolism Present on Admission: No
[2019-11-23] MEDS: LACTULOSE 20 GM/30 ML ORAL.SOL PO SCH ×4 (11:20→22:56)
[2019-11-23] MEDS: MUPIROCIN OINT 2% 22GM NARES SCH ×2 (11:31→22:50)
[2019-11-23] MEDS: LACTULOSE 20 GM/30 ML ORAL.SOL PR SCH ×2 (11:32→15:55)
[2019-11-23] MEDS ORDERED: LACTULOSE 20 GM/30 ML ORAL.SOL PR PRN (19:25)
[2019-11-23] MEDS: INSULIN GLARGINE, HUMAN 1 UNIT/0.01 ML SQ SCH (22:54)
[2019-11-24] MEDS: 0.9 % SODIUM CHLORIDE 10 ML SYRINGE IV SCH (05:29)
[2019-11-24] MEDS: INSULIN LISPRO 1 UNIT/0.01 ML UNIT SQ SCH ×2 (07:48→12:06)
[2019-11-24] MEDS: CALCIUM CARBONATE 500 MG TAB.CHEW CHEWED SCH (09:10)
[2019-11-24] MEDS: LACTULOSE 20 GM/30 ML ORAL.SOL PO SCH (09:10)
[2019-11-24] MEDS: MULTIVIT,THER IRON,CA,FA & MIN 1 TABLET PO SCH (09:11)
[2019-11-24] MEDS: FERROUS GLUCONATE 324 MG TABLET PO SCH (09:11)
[2019-11-24] MEDS: ESCITALOPRAM 10 MG TABLET PO SCH (09:11)
[2019-11-24] MEDS: SPIRONOLACTONE 25 MG TABLET PO SCH (09:11)
[2019-11-24] MEDS: FUROSEMIDE 80 MG TABLET PO SCH (09:11)
[2019-11-24] MEDS: OMEPRAZOLE 20 MG CAPSULE PO SCH (09:11)
[2019-11-24] MEDS: RIFAXIMIN 550 MG TABLET PO SCH (09:12)
[2019-11-24] MEDS: DOCUSATE SODIUM 100 MG CAPSULE PO SCH (09:12)
[2019-11-24] MEDS: MUPIROCIN OINT 2% 22GM NARES SCH (09:12)
[2019-11-24] MEDS: HEPARIN 5,000 UNIT/ML VIAL SQ SCH (09:12)
--- NOTE | 2019-11-24 09:19 | Nephrology Progress Note ---
Subjective Patient information: Note initiated : 11/24/19 at 9:17 am Service Date, if different from initiated Date: [] Patient: Rosita Rodriguez 74 y/o F admitted on 11/18/19 for End stage renal disease. Chief Complaint: [] Feels better. Slightly tired. No abdominal pain. Objective - Vital Signs Vital signs: Vital Signs Temp Pulse Pulse Resp BP Pulse Ox 11/24/19 08:00 98.4 F 73 16 129/52 97 11/24/19 04:09 98.7 F 77 16 128/56 97 11/23/19 23:00 98.6 F 73 16 106/47 95 11/23/19 19:49 97.9 F 72 16 137/55 98 11/23/19 15:00 98.1 F 65 16 134/55 99 11/23/19 11:59 96.8 F L 70 16 126/50 100 Intake and Output 11/23/19 11/24/19 11/24/19 21:59 05:59 13:59 Intake Total 480 200 Output Total 150 Balance 480 200 -150 Intake: Oral 480 200 Output: Void Amount 150 Other: Meal Lunch Percent of Meal Consumed 100% Urine Appearance Clear Clear Urine Color Straw Light Gabby Urine Odor Strong Stool Size Moderate Stool Color Brown Stool Consistency Loose # Bowel Movements 1 # of times incontinent of 1 1 Bowels Weight 167 lb 8 oz Intake & Output: Intake & Output 11/23/19 11/24/19 11/24/19 21:59 05:59 13:59 Intake Total 480 200 Output Total 150 Balance 480 200 -150 Weight 167 lb 8 oz Intake: Oral 480 200 Output: Void Amount 150 Other: Meal Lunch Percent of Meal Consumed 100% Urine Appearance Clear Clear Urine Color Straw Light Gabby Urine Odor Strong Stool Size Moderate Stool Color Brown Stool Consistency Loose # Bowel Movements 1 # of times incontinent of 1 1 Bowels - General Appearance General appearance: cachectic EENT: ATNC Respiratory: clear Cardiology: no murmurs Neurologic: no focal deficit - Lab 11/23/19 05:35 11/23/19 05:35 Most recent lab results Calcium 7.8 mg/dl (8.6-10.4) L 11/23/19 05:35 Phosphorus 2.8 mg/dL (2.7-4.5) 11/23/19 05:35 Magnesium 1.8 mg/dL (1.6-2.5) 11/23/19 05:35 Assessment and Plan (1) End stage renal disease Status: Acute Comment: Patient had BRADEN possibly from ATN, but so far no recovery of the kidneys. She was obtunded and that was possibly related to hepatic encephalopathy. She was treated for that and as well had dialysis. She did lot better. She is apparently being discharged today and will go for dialysis as outpatient.
[2019-11-24 09:31] LABS: Hematocrit 22.6 % (34.1-44.9); Hemoglobin 7.5 g/dL (11.2-15.7)
[2019-11-24 09:56] LABS: ALT/SGPT 15 U/l (0-40); AST/SGOT 39 U/l (0-37); Albumin 2.4 gm/dL (3.2-5.2); Alkaline Phosphatase 135 U/L (39-117); Bilirubin,Direct 0.2 mg/dL (0.0-0.3); Bilirubin,Total 0.7 mg/dL (0.0-1.0); Calcium 7.4 mg/dl (8.6-10.4); Carbon Dioxide 24 mmol/L (22-30); Chloride 99 mmol/L (96-108); Globulin 2.3 gm/dL (2.2-3.7); Glucose 104 mg/dL (70-105); Lactate Dehydrogenase 335 U/L (94-250); Phosphorous 3.2 mg/dL (2.7-4.5); Triglycerides 33 mg/dl (<150)
[2019-11-24 10:11] LABS: Blood Urea Nitrogen 27 mg/dl (8-23); Glomerular Filtration Rate 17
== END 2019-11-24 12:30 | DRG 441 ==
LOC: ICU 16:19 → MEDSUR 11-19 17:50
PROVIDERS: ADMIT Internal Medicine; ATTEND Internal Medicine

== ENCOUNTER 2019-11-27 07:17 | Inpatient (IN) ==
[2019-11-27] MEDS ORDERED: 0.9 % SODIUM CHLORIDE 1,000 ML IV ONE (07:22)
[2019-11-27] MEDS ORDERED: LACTULOSE 20 GM/30 ML ORAL.SOL PT ONE (07:50)
--- NOTE | 2019-11-27 07:54 | Emergency Department Note ---
Altered Mental Status HPI - General Chief Complaint: Altered Mental Status Stated Complaint: Unresponsive, fever Time Seen by Provider: 11/27/19 07:45 Source: EMS Mode of arrival: EMS Limitations: altered mental status - History of Present Illness HPI Narrative: 74-year-old female comes in with altered mental status. She was hypoxic at 78% and unresponsive at [facility] where she lives and is wearing nasal cannula oxygen. She is totally unresponsive however she is breathing on her own with an adequate pulse. Her daughter also came with her and advises me that she just got out of the hospital 3 days ago after a weeklong stay for similar. Apparently she has been in decline for the last 3 months and has been in and out of [facility] and [facility]. Apparently she has liver failure with hepatorenal syndrome and known hepatic encephalopathy. She is on dialysis with Dr. Garcia. She is also on insulin dependent diabetic. Her current situation is pretty typical of how she has presented with the last few episodes of hepatic encephalopathy per her daughter She is a full code - Related Data Home Medications Medication Instructions Recorded Confirmed Multivit-Min/Iron/Folic Acid/K 2 tab PO DAILY 08/21/17 11/19/19 [Multi-Day Plus Minerals Tablet] Acetaminophen [Non-Aspirin] 650 mg PO Q4HP PRN 11/18/19 11/19/19 DULoxetine [Cymbalta] 60 mg PO DAILY 11/18/19 Furosemide [Lasix] 80 mg PO DAILY 11/18/19 Lactulose [Enulose] 10 gm PO BID 11/18/19 11/19/19 Lansoprazole [Prevacid 24Hr] 15 mg PO DAILY 11/18/19 11/18/19 Magnesium Hydroxide [Milk of 30 ml PO DAILYP PRN 11/18/19 11/18/19 Magnesia] Rifaximin [Xifaxan] 550 mg PO BID 11/18/19 11/18/19 Spironolactone 50 mg PO DAILY 11/18/19 Bisacodyl [Dulcolax] 10 mg RC DAILYP PRN 11/19/19 11/19/19 Calcium Carbonate [Tums] 2,000 mg CHEWED TIDCC 11/19/19 11/19/19 Escitalopram [Lexapro] 10 mg PO DAILY 11/19/19 11/19/19 Ferrous Gluconate [Fergon] 240 mg PO DAILY 11/19/19 11/19/19 Fluticasone Propionate [Flonase] 1 spray NS HS 11/19/19 11/19/19 Insulin Glargine, Human [Lantus] 25 unit SQ HS 11/19/19 11/19/19 Ipratropium/Albuterol [Duoneb] 6 ml NEB DAILYP PRN 11/19/19 11/19/19 Na Phos,M-B/Na Phos,Di-Ba [Fleets 1 dose [place] DAILYP PRN 11/19/19 11/19/19 Adult] Ubidecarenone [Coq-10] 200 mg PO DAILY 11/19/19 11/19/19 Previous Rx's Medication Instructions Recorded Lactulose [Cephulac] 20 gm PO TID #1 oral.yudi 11/23/19 Lactulose [Cephulac] 30 gm PO DAILY PRN #20 oral.yudi 11/23/19 Insulin Lispro [Humalog] See Protocol SQ ACHS #1 vial 11/24/19 Allergies Allergy/AdvReac Type Severity Reaction Status Date / Time Sulfa (Sulfonamide Allergy Severe Anaphylaxis Verified 11/27/19 07:17 Antibiotics) codeine Allergy Mild Hives Verified 11/27/19 07:17 morphine Allergy Mild Hives Verified 11/27/19 07:17 oxycodone Allergy Mild Itching Verified 11/27/19 07:17 aspirin AdvReac Mild Itching Verified 11/27/19 07:17 diphenhydramine AdvReac Mild Itching Verified 11/27/19 07:17 [From Benadryl] doxycycline AdvReac Mild Itching Verified 11/27/19 07:17 Review of Systems All systems ED: reviewed and negative except as stated. Past Medical History - Past Medical History Attestation: Yes: The following information was validated with the patient. [facility] Narrative: Family History (Last Updated 11/18/19 @ 17:20 by Rosalia Chilel MD) Father Stroke Brother Stroke Mother Dementia Medical History (Last Updated 11/19/19 @ 11:17 by Rosalia Chilel MD) Type 2 diabetes mellitus with renal complication (Chronic) Cirrhosis (Chronic) Amputation of fifth toe of right foot (Acute) Cirrhosis of liver not due to alcohol (Acute) End stage renal disease (Acute) Esophageal varices in cirrhosis (Acute) Osteomyelitis of toe of right foot (Acute) Type 2 diabetes mellitus with end-stage renal disease (Acute) Past Surgical History (Last Updated 11/18/19 @ 17:20 by Rosalia Chiell MD) History of cholecystectomy (Acute) History of total abdominal hysterectomy (Acute) S/P TIPS (transjugular intrahepatic portosystemic shunt) (Acute) - Social History smoking status: Never smoker Physical Exam Resting with heavy breathing. Wearing nasal cannula oxygen. Normocephalic atraumatic. Conjunctive are clear sclerae white nonicteric. Her extraocular movements are intact but she is not tracking. Pupils are fixed but not dilated- approximately 2 to 3 mm or so-she is not opening her eyes spontaneously. No nasal discharge but she is wearing nasal cannula oxygen with oxygenation of 98%. Oropharynx is dry and she has mouth breathing. Neck is supple without lymphadenopathy or thyromegaly. Heart is regular rhythm mildly tachycardic. No murmur appreciated. Lungs are basically clear to auscultation bilaterally without wheezes rales rhonchi. Abdomen is soft mildly distended, suspect mild ascites. She is not moving at all. Unresponsive to verbal and physical stimu li. +1 pedal edema bilaterally Limitations: altered mental status Course Vital Signs Temperature 99.1 F H 11/27/19 07:18 Pulse Rate 80 11/27/19 07:18 Respiratory Rate 14 11/27/19 07:18 Blood Pressure 143/61 11/27/19 07:18 Pulse Oximetry (%) 98 11/27/19 07:18 Temperature 99.1 F H 11/27/19 07:18 Pulse Rate 80 11/27/19 07:18 Respiratory Rate 14 11/27/19 07:18 Blood Pressure 143/61 11/27/19 07:18 Pulse Oximetry (%) 98 11/27/19 07:18 Disposition Pt seen by CHAIR CAR ATTENDANT/PA only: No Clinical Impression: End stage renal disease, Encephalopathy acute Altered mental status Qualifiers: Altered mental status type: coma Coma depth: Knickerbocker coma 3-8 Coma timing: unspecified coma timing Qualified Code(s): R40.2430 - Knickerbocker coma scale score 3-8, unspecified time Cirrhosis Qualifiers: Hepatic cirrhosis type: unspecified hepatic cirrhosis Ascites presence: with ascites Qualified Code(s): K74.60 - Unspecified cirrhosis of liver; R18.8 - Other ascites Summary: Ordered laboratory. Suspect recurrence of hepatic encephalopathy-GCS of 6. Place NG tube and restart lactulose while waiting for laboratory-this is ordered. I reviewed the discharge summary from the last hospital stay Patient will be handed off to Dr. Joyce at shift change Disposition: Still a Patient Condition: Fair Referrals: Siria Mcgraw MD [Primary Care Provider] -
--- NOTE | 2019-11-27 08:29 | XRay Report ---
HISTORY: Hypoxia, fever, unresponsive FINDINGS: Lung volumes are relatively small. There are moderate bilateral perihilar alveolar opacities. No lobar consolidation is present. There is no pleural effusion. The heart size is within normal limits. There is a dual lumen catheter placed into the superior vena cava and a nasogastric tube passing through the esophagus to the gastroesophageal junction. IMPRESSION: Bilateral perihilar opacities which could be due to pulmonary edema or bilateral pneumonia Interpreted and Authenticated by: Florin Main 11/27/19
--- NOTE | 2019-11-27 08:32 | XRay Report ---
HISTORY: Nasogastric tube insertion. FINDINGS: there is nasogastric tube passing through the esophagus. The catheter enters the stomach. It is kinked and the distal end of the catheter is turned upward and extends back into the lower esophagus. The stomach is largely decompressed. There is a stent in the right epigastrium. This could be a TIPS stent. Visualized portions of bowel is not dilated. IMPRESSION: Nasogastric tube kinked in the upper stomach and folded backwards up into the esophagus Interpreted and Authenticated by: Florin Main 11/27/19
[2019-11-27 09:16] LABS: ALT/SGPT 18 U/l (0-40); AST/SGOT 44 U/l (0-37); Albumin 2.9 gm/dL (3.2-5.2); Alkaline Phosphatase 161 U/L (39-117); Blood Urea Nitrogen 18 mg/dl (8-23); Calcium 7.9 mg/dl (8.6-10.4); Carbon Dioxide 27 mmol/L (22-30); Chloride 99 mmol/L (96-108); Globulin 2.8 gm/dL (2.2-3.7); Glomerular Filtration Rate 23; Glucose 144 mg/dL (70-105)
[2019-11-27 10:04] LABS: Appearance,Urine CLEAR; Bacteria,Urine 0 /hpf (0); Bilirubin,Urine NEG (NEG); Color,Urine YELLOW; Culture Indicated,Urine YES; Glucose,Urine (UA) NEGATIVE (NEG); Ketones,Urine NEG (NEG); Leukocyte Esterase,Urine 75 /uL (NEG); Mucus,Urine FEW /hpf (0); Nitrate,Urine NEG (NEG); Protein,Urine 100 mg/dL (NEG); Specific Gravity,Urine 1.015 (1.000-1.035); Urine Amorphous Crystals FEW /hpf (0); Urine Blood 0.03 mg/dL (<0.03); Urine Budding Yeast MOD /hpf (0); Urine Hyaline Cast 4 /lpf (0-2); Urine RBC 12 /hpf (0-1); Urine Squamous Epithelial Cell 1 /hpf (0-4); Urine Transitional Epi Cells 2 /hpf (0-2); Urine WBC 30 /hpf (0-4); Urobilinogen,Urine NEG (NEG)
[2019-11-27 10:07] LABS: Basophils # (Auto) 0.02 K/mcL (0.00-0.30); Basophils % (Auto) 0.6 % (0.0-2.0); Eosinophils # (Auto) 0.08 K/mcL (0.00-0.70); Eosinophils % (Auto) 2.5 % (0.0-7.0); Granulocytes % (Auto) 68.3 % (38.0-78.0); Hematocrit 27.5 % (34.1-44.9); Hemoglobin 9.1 g/dL (11.2-15.7); Lymphocytes % (Auto) 18.9 % (15.5-49.0); Mean Corpuscular HGB Conc 33.1 g/dL (31.0-36.0); Mean Platelet Volume 10.2 fL (7.4-10.4); Monocytes # (Auto) 0.31 K/mcL (0.10-0.90); Monocytes % (Auto) 9.7 % (1.0-12.0); Platelet Count 54 K/mcL (140-440); RBC 3.16 M/mcL (3.59-5.38); Red Cell Distribution Width 15.6 % (11.5-14.5); WBC 3.2 K/mcL (4.50-11.00)
--- NOTE | 2019-11-27 10:53 | Emergency Department Note ---
Altered Mental Status HPI - General Chief Complaint: Altered Mental Status Stated Complaint: Unresponsive, fever Time Seen by Provider: 11/27/19 07:45 Source: EMS Mode of arrival: EMS Limitations: altered mental status - Related Data Home Medications Medication Instructions Recorded Confirmed Multivit-Min/Iron/Folic Acid/K 2 tab PO DAILY 08/21/17 11/27/19 [Multi-Day Plus Minerals Tablet] Acetaminophen [Non-Aspirin] 650 mg PO Q4HP PRN 11/18/19 11/27/19 DULoxetine [Cymbalta] 60 mg PO DAILY 11/18/19 11/27/19 Furosemide [Lasix] 80 mg PO DAILY 11/18/19 11/27/19 Lactulose [Enulose] 10 gm PO BID 11/18/19 11/27/19 Lansoprazole [Prevacid 24Hr] 15 mg PO DAILY 11/18/19 11/27/19 Magnesium Hydroxide [Milk of 30 ml PO DAILYP PRN 11/18/19 11/27/19 Magnesia] Rifaximin [Xifaxan] 550 mg PO BID 11/18/19 11/27/19 Spironolactone 50 mg PO DAILY 11/18/19 11/27/19 Bisacodyl [Dulcolax] 10 mg RC DAILYP PRN 11/19/19 11/27/19 Calcium Carbonate [Tums] 2,000 mg CHEWED TIDCC 11/19/19 11/27/19 Escitalopram [Lexapro] 10 mg PO DAILY 11/19/19 11/27/19 Ferrous Gluconate [Fergon] 240 mg PO DAILY 11/19/19 11/27/19 Fluticasone Propionate [Flonase] 1 spray NS 11/19/19 11/27/19 Insulin Glargine, Human [Lantus] 25 unit SQ 11/19/19 11/27/19 Ipratropium/Albuterol [Duoneb] 6 ml NEB DAILYP PRN 11/19/19 11/27/19 Na Phos,M-B/Na Phos,Di-Ba [Fleets 1 dose ID DAILYP PRN 11/19/19 11/27/19 Adult] Ubidecarenone [Coq-10] 200 mg PO DAILY 11/19/19 11/27/19 Previous Rx's Medication Instructions Recorded Lactulose [Cephulac] 20 gm PO TID #1 oral.yudi 11/23/19 Lactulose [Cephulac] 30 gm PO DAILY PRN #20 oral.yudi 11/23/19 Insulin Lispro [Humalog] See Protocol SQ ACHS #1 vial 11/24/19 Allergies Allergy/AdvReac Type Severity Reaction Status Date / Time Sulfa (Sulfonamide Allergy Severe Anaphylaxis Verified 11/27/19 07:17 Antibiotics) codeine Allergy Mild Hives Verified 11/27/19 07:17 morphine Allergy Mild Hives Verified 11/27/19 07:17 oxycodone Allergy Mild Itching Verified 11/27/19 07:17 aspirin AdvReac Mild Itching Verified 11/27/19 07:17 diphenhydramine AdvReac Mild Itching Verified 11/27/19 07:17 [From Benadryl] doxycycline AdvReac Mild Itching Verified 11/27/19 07:17 Past Medical History - Social History smoking status: Never smoker Physical Exam Limitations: altered mental status Course - Reevaluation(s) Reevaluation #1: Please see history and physical as documented by Dr. Escalera. Patient signed out to me 9 AM. I did have discussion with the daughter and at this point, she is comatose, daughter indicated that she would not want to be on a ventilator. I discussed comfort care with the daughter and she agrees at this time. The daughter who does have power of glue bone crusher does not want any further aggressive measures, she wants her to be comfortable and not suffer. Her liver failure is end-stage and she has significant encephalopathy. We will stop dialysis, admitted to hospital for further comfort care. Final diagnosis is end-stage renal and liver disease Vital Signs Temperature 99.1 F H 11/27/19 07:18 Pulse Rate 80 11/27/19 07:18 Respiratory Rate 14 11/27/19 07:18 Blood Pressure 143/61 11/27/19 07:18 Pulse Oximetry (%) 98 11/27/19 07:18 Temperature 99.1 F H 11/27/19 07:18 Pulse Rate 69 11/27/19 10:04 Respiratory Rate 14 11/27/19 10:04 Blood Pressure 142/47 11/27/19 10:04 Pulse Oximetry (%) 99 11/27/19 10:04 Altered Mental Status - MDM Narrative Medical decision making narrative: End-stage renal and liver disease, hepatic encephalopathy - Lab Data Lab results reviewed: Yes I reviewed the patient's lab results. Result diagrams: 11/27/19 09:14 11/27/19 07:45 Lab Results 11/27/19 11/27/19 11/27/19 Range/Units 07:45 07:45 07:45 WBC TNP RBC TNP Hgb TNP Hct TNP MCV TNP MCH TNP MCHC TNP RDW TNP Plt Count TNP MPV TNP Gran % (38.0-78.0) % Lymph % (Auto) (15.5-49.0) % [place] % (Auto) (1.0-12.0) % Eos % (Auto) (0.0-7.0) % Baso % (Auto) (0.0-2.0) % Gran # (1.80-8.00) K/mcL Lymph # (Auto) (1.50-4.80) K/mcL [place] # (Auto) (0.10-0.90) K/mcL Eos # (Auto) (0.00-0.70) K/mcL Baso # (Auto) (0.00-0.30) K/mcL PT INR VBG Lactic Acid (0.5-2.0) mmol/L Sodium 135 (133-145) mmol/L Potassium 4.9 (3.3-5.1) mmol/L Chloride 99 (96-108) mmol/L Carbon Dioxide 27 (22-30) mmol/L Anion Gap 9.0 (8-16) BUN 18 (8-23) mg/dl Creatinine 2.1 H (0.6-1.1) mg/dl GFR Calculation 23 Glucose 144 H (70-105) mg/dL Calcium 7.9 L (8.6-10.4) mg/dl Magnesium 2.1 (1.6-2.5) mg/dL Total Bilirubin 1.0 (0.0-1.0) mg/dL AST 44 H (0-37) U/l ALT 18 (0-40) U/l Alkaline Phosphatase 161 H (39-117) U/L Ammonia 272 H (11-51) umol/L Total Protein 5.7 L (5.9-8.4) gm/dL Albumin 2.9 L (3.2-5.2) gm/dL Globulin 2.8 (2.2-3.7) gm/dL Albumin/Globulin Ratio 1.0 (1.0-2.3) Urine Color Urine Appearance Urine pH (5.0-9.0) Ur Specific [place] (1.000-1.035) Urine Protein (NEG) mg/dL Urine Glucose (UA) (NEG) mg/dL Urine Ketones (NEG) mg/dL Urine Occult Blood (<0.03) mg/dL Urine Nitrate (NEG) Urine Bilirubin (NEG) mg/dL Urine Urobilinogen (NEG) mg/dL Ur Leukocyte Esterase (NEG) /uL Urine RBC (0-1) /hpf Urine WBC (0-4) /hpf Ur Squamous Epith Cells (0-4) /hpf Ur Transition Epith Cell (0-2) /hpf Amorphous Crystals (0) /hpf Urine Bacteria (0) /hpf Hyaline Casts (0-2) /lpf Urine Mucus (0) /hpf Urine Yeast (Budding) (0) /hpf Ur Culture Indicated? 11/27/19 11/27/19 11/27/19 Range/Units 07:45 07:45 09:01 WBC RBC Hgb Hct MCV MCH MCHC RDW Plt Count MPV Gran % (38.0-78.0) % Lymph % (Auto) (15.5-49.0) % [place] % (Auto) (1.0-12.0) % Eos % (Auto) (0.0-7.0) % Baso % (Auto) (0.0-2.0) % Gran # (1.80-8.00) K/mcL Lymph # (Auto) (1.50-4.80) K/mcL [place] # (Auto) (0.10-0.90) K/mcL Eos # (Auto) (0.00-0.70) K/mcL Baso # (Auto) (0.00-0.30) K/mcL PT TNP INR TNP VBG Lactic Acid 1.7 (0.5-2.0) mmol/L Sodium (133-145) mmol/L Potassium (3.3-5.1) mmol/L Chloride (96-108) mmol/L Carbon Dioxide (22-30) mmol/L Anion Gap (8-16) BUN (8-23) mg/dl Creatinine (0.6-1.1) mg/dl GFR Calculation Glucose (70-105) mg/dL Calcium (8.6-10.4) mg/dl Magnesium (1.6-2.5) mg/dL Total Bilirubin (0.0-1.0) mg/dL AST (0-37) U/l ALT (0-40) U/l Alkaline Phosphatase (39-117) U/L Ammonia (11-51) umol/L Total Protein (5.9-8.4) gm/dL Albumin (3.2-5.2) gm/dL Globulin (2.2-3.7) gm/dL Albumin/Globulin Ratio (1.0-2.3) Urine Color Yellow Urine Appearance Clear Urine pH 9.0 (5.0-9.0) Ur Specific [place] 1.015 (1.000-1.035) Urine Protein 100 A (NEG) mg/dL Urine Glucose (UA) Negative (NEG) mg/dL Urine Ketones Neg (NEG) mg/dL Urine Occult Blood 0.03 A (<0.03) mg/dL Urine Nitrate Neg (NEG) Urine Bilirubin Neg (NEG) mg/dL Urine Urobilinogen Neg (NEG) mg/dL Ur Leukocyte Esterase 75 A (NEG) /uL Urine RBC 12 H (0-1) /hpf Urine WBC 30 H (0-4) /hpf Ur Squamous Epith Cells 1 (0-4) /hpf Ur Transition Epith Cell 2 (0-2) /hpf Amorphous Crystals Few A (0) /hpf Urine Bacteria 0 (0) /hpf Hyaline Casts 4 H (0-2) /lpf Urine Mucus Few (0) /hpf Urine Yeast (Budding) Mod A (0) /hpf Ur Culture Indicated? Yes 11/27/19 Range/Units 09:14 WBC 3.2 L RBC 3.16 L Hgb 9.1 L Hct 27.5 L MCV 87.0 MCH 28.8 MCHC 33.1 RDW 15.6 H Plt Count 54 L MPV 10.2 Gran % 68.3 (38.0-78.0) % Lymph % (Auto) 18.9 (15.5-49.0) % [place] % (Auto) 9.7 (1.0-12.0) % Eos % (Auto) 2.5 (0.0-7.0) % Baso % (Auto) 0.6 (0.0-2.0) % Gran # 2.17 (1.80-8.00) K/mcL Lymph # (Auto) 0.60 L (1.50-4.80) K/mcL [place] # (Auto) 0.31 (0.10-0.90) K/mcL Eos # (Auto) 0.08 (0.00-0.70) K/mcL Baso # (Auto) 0.02 (0.00-0.30) K/mcL PT INR VBG Lactic Acid (0.5-2.0) mmol/L Sodium (133-145) mmol/L Potassium (3.3-5.1) mmol/L Chloride (96-108) mmol/L Carbon Dioxide (22-30) mmol/L Anion Gap (8-16) BUN (8-23) mg/dl Creatinine (0.6-1.1) mg/dl GFR Calculation Glucose (70-105) mg/dL Calcium (8.6-10.4) mg/dl Magnesium (1.6-2.5) mg/dL Total Bilirubin (0.0-1.0) mg/dL AST (0-37) U/l ALT (0-40) U/l Alkaline Phosphatase (39-117) U/L Ammonia (11-51) umol/L Total Protein (5.9-8.4) gm/dL Albumin (3.2-5.2) gm/dL Globulin (2.2-3.7) gm/dL Albumin/Globulin Ratio (1.0-2.3) Urine Color Urine Appearance Urine pH (5.0-9.0) Ur Specific [place] (1.000-1.035) Urine Protein (NEG) mg/dL Urine Glucose (UA) (NEG) mg/dL Urine Ketones (NEG) mg/dL Urine Occult Blood (<0.03) mg/dL Urine Nitrate (NEG) Urine Bilirubin (NEG) mg/dL Urine Urobilinogen (NEG) mg/dL Ur Leukocyte Esterase (NEG) /uL Urine RBC (0-1) /hpf Urine WBC (0-4) /hpf Ur Squamous Epith Cells (0-4) /hpf Ur Transition Epith Cell (0-2) /hpf Amorphous Crystals (0) /hpf Urine Bacteria (0) /hpf Hyaline Casts (0-2) /lpf Urine Mucus (0) /hpf Urine Yeast (Budding) (0) /hpf Ur Culture Indicated? Disposition Pt seen by AERONAUTICAL ENGINEERING TEACHER/PA only: No Clinical Impression: End stage renal disease, Encephalopathy acute, Delirium due to general medical condition Altered mental status Qualifiers: Altered mental status type: coma Coma depth: Paulo coma 3-8 Coma timing: unspecified coma timing Qualified Code(s): R40.2430 - Paulo coma scale score 3-8, unspecified time Cirrhosis Qualifiers: Hepatic cirrhosis type: unspecified hepatic cirrhosis Ascites presence: with ascites Qualified Code(s): K74.60 - Unspecified cirrhosis of liver Disposition: Xfer As Inpt ([facility]) Condition: Critical Referrals: Siria Mcgraw MD [Primary Care Provider] -
[2019-11-27] MEDS ORDERED: LORazepam 2 MG/ML VIAL IV ONE (10:54)
[2019-11-27] MEDS ORDERED: ONDANSETRON 4 MG ODT TABLET SL PRN (13:02)
[2019-11-27] MEDS ORDERED: ONDANSETRON 4 MG/2 ML VIAL IV PRN ×2 (13:02→13:35)
[2019-11-27] MEDS ORDERED: LORazepam 2 MG/ML VIAL IV PRN (13:11)
[2019-11-27] MEDS ORDERED: SCOPOLAMINE 1 PATCH PATCH TOPICAL SCH (13:15)
--- NOTE | 2019-11-27 13:23 | Internal Med History&Physical ---
Medical - H&P: [facility] Patient information: Note initiated : 11/27/19 at 1:15 pm Service Date, if different from initiated Date: [] Patient: Rosita Rodriguez a 74 y/o F admitted on for Unresponsive, fever. Chief Complaint: [Unresponsiveness x 1 day] History of present illness: Ms. Rodriguez is a 74 year old F with a history of cirrhosis and end-stage renal disease on dialysis, and type 2 diabetes who presented to the ER due to unresponsiveness. Patient is sleeping and comatose. All history is obtained from daughter Anais Freed ([id number]) and chart. Patient lives in a facility where she was found to be responsiveness in this morning. She was admitted to our hospital on 11/18/2019 due to hepatic encephalopathy. In the ER, ammonia 272. ER physician Dr. Joyce explained patient to daughter Anais Freed (POA) who would like her mom to be admitted for comfort care only. ROS unobtainable: due to mental status Medical - H&P: PMH Medical history: Liver cirrhosis and ESRD Social history: Unable to obtain due to mental status Medical - H&P: Meds Home Medications Medication Instructions Recorded Confirmed Type Multivit-Min/Iron/Folic Acid/K 2 tab PO DAILY 08/21/17 11/27/19 History [Multi-Day Plus Minerals Tablet] Acetaminophen [Non-Aspirin] 650 mg PO Q4HP PRN 11/18/19 11/27/19 History DULoxetine [Cymbalta] 60 mg PO DAILY 11/18/19 11/27/19 History Furosemide [Lasix] 80 mg PO DAILY 11/18/19 11/27/19 History Lactulose [Enulose] 10 gm PO BID 11/18/19 11/27/19 History Lansoprazole [Prevacid 24Hr] 15 mg PO DAILY 11/18/19 11/27/19 History Magnesium Hydroxide [Milk of 30 ml PO DAILYP PRN 11/18/19 11/27/19 History Magnesia] Rifaximin [Xifaxan] 550 mg PO BID 11/18/19 11/27/19 History Spironolactone 50 mg PO DAILY 11/18/19 11/27/19 History Bisacodyl [Dulcolax] 10 mg RC DAILYP PRN 11/19/19 11/27/19 History Calcium Carbonate [Tums] 2,000 mg CHEWED TIDCC 11/19/19 11/27/19 History Escitalopram [Lexapro] 10 mg PO DAILY 11/19/19 11/27/19 History Ferrous Gluconate [Fergon] 240 mg PO DAILY 11/19/19 11/27/19 History Fluticasone Propionate [Flonase] 1 spray NS HS 11/19/19 11/27/19 History Insulin Glargine, Human [Lantus] 25 unit SQ HS 11/19/19 11/27/19 History Ipratropium/Albuterol [Duoneb] 6 ml NEB DAILYP PRN 11/19/19 11/27/19 History Na Phos,M-B/Na Phos,Di-Ba [Fleets 1 dose [place] DAILYP PRN 11/19/19 11/27/19 History Adult] Ubidecarenone [Coq-10] 200 mg PO DAILY 11/19/19 11/27/19 History Lactulose [Cephulac] 20 gm PO TID #1 oral.yudi 11/23/19 11/27/19 Rx Lactulose [Cephulac] 30 gm PO DAILY PRN #20 oral.yudi 11/23/19 11/27/19 Rx Insulin Lispro [Humalog] See Protocol SQ ACHS #1 vial 11/24/19 11/27/19 Rx Allergies Allergy/AdvReac Type Severity Reaction Status Date / Time Sulfa (Sulfonamide Allergy Severe Anaphylaxis Verified 11/27/19 07:17 Antibiotics) codeine Allergy Mild Hives Verified 11/27/19 07:17 morphine Allergy Mild Hives Verified 11/27/19 07:17 oxycodone Allergy Mild Itching Verified 11/27/19 07:17 aspirin AdvReac Mild Itching Verified 11/27/19 07:17 diphenhydramine AdvReac Mild Itching Verified 11/27/19 07:17 [From Benadryl] doxycycline AdvReac Mild Itching Verified 11/27/19 07:17 Medical - H&P: Exam - Constitutional Vitals: Temp Pulse Resp BP Pulse Ox 99.1 F H 78 12 148/58 96 11/27/19 07:18 11/27/19 12:46 11/27/19 12:46 11/27/19 12:46 11/27/19 12:46 General appearance: no cooperative (Sleeping on comatose) - Head Head exam: Present: atraumatic, normal inspection, normocephalic - Neck Neck exam: Absent: lymphadenopathy - Respiratory Respiratory exam: Present: rhonchi - Cardiovascular Cardiovascular exam: Present: normal rate and rhythm - GI/Abdominal GI/Abdominal exam: Present: normal bowel sounds, soft - Extremities Exam Extremities exam: Present: normal inspection - Neurological Exam Neurological exam: Absent: alert (Sleepy and comatose) - Psychiatric Psychiatric exam: Present: normal mood Medical - H&P: Reslt - Labs CBC & Chem 7: 11/27/19 09:14 11/27/19 07:45 Labs: Short CBC 11/27/19 11/27/19 Range/Units 07:45 09:14 WBC TNP 3.2 L Hgb TNP 9.1 L Hct TNP 27.5 L Plt Count TNP 54 L BMP 11/27/19 07:45 Sodium 135 Potassium 4.9 Chloride 99 Carbon Dioxide 27 BUN 18 Creatinine 2.1 H Glucose 144 H Calcium 7.9 L Liver Function 11/27/19 Range/Units 07:45 Total Bilirubin 1.0 (0.0-1.0) mg/dL AST 44 H (0-37) U/l ALT 18 (0-40) U/l Alkaline Phosphatase 161 H (39-117) U/L Albumin 2.9 L (3.2-5.2) gm/dL Urine 11/27/19 Range/Units 09:01 Urine Color Yellow Urine Appearance Clear Urine pH 9.0 (5.0-9.0) Ur Specific [place] 1.015 (1.000-1.035) Urine Protein 100 A (NEG) mg/dL Urine Glucose (UA) Negative (NEG) mg/dL Medical - H&P: A/P - Narrative A/P Narrative: Assessment: 1. Encephalopathy, hepatic 2. Cirrhosis, s/p TIPS procedure in October secondary to recurrent ascites. 3. ESRD on HD - 4. Anemia, chronic: 5. DM type 2 Plan: ER physician Dr. Joyce discussed with daughter Anais Freed (POA) ([phone]) who would like her mom to be admitted for comfort care only. I met daughter Ms Alba who told me that she would like to do comfort care only. No IV fluids No blood or imaging tests No medications which are not related to comfort care DNR/DNI, comfort care only She fully understood pain and sleeping medications can suppress patient's respiration Pt will be admitted to med/surg and Comfort care only will be starting.
[2019-11-27] MEDS ORDERED: 0.9 % SODIUM CHLORIDE 10 ML SYRINGE IV SCH (14:00)
[2019-11-27 14:27] LABS: POC INR 1.1 (0.9-1.2); POC Pro Time 12.8 sec (11.9-14.5)
[2019-11-27] MEDS: 0.9 % SODIUM CHLORIDE 10 ML SYRINGE IV SCH ×2 (15:02→22:37)
[2019-11-27] MEDS ORDERED: HYDROmorphone 2 MG/ML VIAL ONE ×2 (17:16→18:46)
[2019-11-27] MEDS: HYDROmorphone 2 MG/ML VIAL IV PRN ×2 (18:48→20:47)
[2019-11-28] MEDS: HYDROmorphone 2 MG/ML VIAL IV PRN ×2 (00:47→20:51)
[2019-11-28] MEDS ORDERED: SCOPOLAMINE 1 PATCH PATCH ONE (01:04)
[2019-11-28] MEDS: 0.9 % SODIUM CHLORIDE 10 ML SYRINGE IV SCH ×3 (05:25→21:00)
[2019-11-28] MEDS: LORATADINE 10 MG TABLET PO PRN (10:28)
[2019-11-28] MEDS ORDERED: MAGNESIUM HYDROXIDE 30 ML ORAL.SUSP PO ONE (19:25)
--- NOTE | 2019-11-28 19:51 | Internal Med Progress Note ---
Medical - PN: Subj Patient information: Note initiated : 11/28/19 at 7:43 pm Service Date, if different from initiated Date: [] Patient: Rosita Rodriguez 74 y/o F admitted on 11/27/19 for Unresponsive, fever. Chief Complaint: [] Interval history: 11/27 Today pt is more alert and awake and can answer simple questions. Pt asked something to eat. Discussed with daughter who would like to give her food even though there is a high risk for aspiration. Pt wanted to have HD. Discussed with damichaelter who agreed to continue comfort care only but also agreed to have HD because this may be the last thing she asks. Consulted nephrology Dr. Garcia who will graciously see pt. Pt asked meds for constipation. Discussed with daughter who agreed with milk of mag. ROS: Unable to obtain due to mental status - Constitutional Vitals: Vital Signs Temp Pulse Resp BP Pulse Ox 99.3 F H 90 20 155/57 98 11/28/19 19:28 11/28/19 19:28 11/28/19 19:28 11/28/19 19:28 11/28/19 19:28 Period Temp Pulse Resp BP Sys/Singh Pulse Ox Last 24 Hr 98.0 F-99.4 F 74-90 20-20 130-168/57-68 97-99 Intake and Output 11/28/19 11/28/19 11/28/19 05:59 13:59 21:59 Intake Total 240 Output Total Balance 240 Weight 81.873 kg Patient Weight 11/29/19 05:59 Weight 81.873 kg Intake & Output: Intake & Output 11/28/19 11/28/19 11/28/19 05:59 13:59 21:59 Intake Total 240 Output Total Balance 240 Weight 81.873 kg Intake: Oral 240 Output: Urine Catheter Amount Other: Meal Lunch Percent of Meal Consumed 100% Feeding Ability Assist with Tray Set Up Urine Appearance Clear Uretheral ([place]) Clear Urine Color Dark Yellow Uretheral ([place]) Dark Yellow Urine Odor Normal Uretheral ([place]) Normal - Additional findings Additional findings: General appearance: more alert and awake and can answer simple questions Head exam: atraumatic, normal inspection, normocephalic Neck exam: lymphadenopathy Respiratory exam: rhonchi Cardiovascular exam: normal rate and rhythm GI/Abdominal exam: normal bowel sounds, soft Extremities exam: normal inspection Neurological exam: more alert and awake and can answer simple questions Medical - PN: Obj Da - Labs CBC & Chem 7: 11/27/19 09:14 11/27/19 07:45 Labs: Abnormal Lab Results 11/27/19 11/27/19 11/27/19 09:14 09:01 07:45 WBC 3.2 L RBC 3.16 L Hgb 9.1 L Hct 27.5 L RDW 15.6 H Plt Count 54 L Lymph # (Auto) 0.60 L Creatinine Glucose Calcium AST Alkaline Phosphatase Ammonia 272 H Total Protein Albumin Urine Protein 100 A Urine Occult Blood 0.03 A Ur Leukocyte Esterase 75 A Urine RBC 12 H Urine WBC 30 H Amorphous Crystals Few A Hyaline Casts 4 H Urine Yeast (Budding) Mod A 11/27/19 07:45 WBC RBC Hgb Hct RDW Plt Count Lymph # (Auto) Creatinine 2.1 H Glucose 144 H Calcium 7.9 L AST 44 H Alkaline Phosphatase 161 H Ammonia Total Protein 5.7 L Albumin 2.9 L Urine Protein Urine Occult Blood Ur Leukocyte Esterase Urine RBC Urine WBC Amorphous Crystals Hyaline Casts Urine Yeast (Budding) Meds: Medications Hydrocortisone (Hc Crm 1%) 1 dose TOPICAL BID LINDA Hydromorphone HCl (Dilaudid) 0.5 mg IV Q2HP PRN; Protocol PRN Reason: Per Pain Protocol Last Admin: 11/28/19 00:47 Dose: 0.5 mg Documented by: Loratadine (Claritin) 10 mg PO DAILYP PRN PRN Reason: Allergy Symptoms Last Admin: 11/28/19 10:28 Dose: 10 mg Documented by: Lorazepam (Ativan) 0.5 mg IV Q4HP PRN PRN Reason: ANXIETY/SEDATION Magnesium Hydroxide (Milk Of Magnesia) 30 ml PO ONCE ONE Stop: 11/28/19 19:26 Ondansetron HCl (Zofran) 4 mg IV Q6HP PRN PRN Reason: Nausea And Vomiting Scopolamine (Transderm-Scop) 1 patch TOPICAL Q72H LINDA Sodium Chloride (Saline Flush) 10 ml IV Q8 LINDA Last Admin: 11/28/19 14:00 Dose: 10 ml Documented by: Medical - PN: A/P - Time Spent With Patient Total time spent is greater than 50% in coordination of care (as documented) at patient's floor/unit and/or counseling patient: - Narrative A/P Narrative: Assessment: 1. Encephalopathy, hepatic 2. Cirrhosis, s/p TIPS procedure in October secondary to recurrent ascites. 3. ESRD on HD - 4. Anemia, chronic: 5. DM type 2 Plan: ER physician Dr. Joyce discussed with daughter Anais Freed (POA) ([phone]) who would like her mom to be admitted for comfort care only. I met daughter Ms Alba who told me that she would like to do comfort care only. No IV fluids No blood or imaging tests No medications which are not related to comfort care DNR/DNI, comfort care only She fully understood pain and sleeping medications can suppress patient's respiration Pt will be admitted to med/surg and Comfort care only will be starting. as per requested by pt and daughter: Nephrology consulted for HD Milk of mag x 1 regular diet
[2019-11-28] MEDS ORDERED: ACETAMINOPHEN 500 MG TABLET PO PRN (20:21)
[2019-11-28] MEDS ORDERED: PANTOPRAZOLE 40 MG TABLET PO SCH (20:22)
[2019-11-28] MEDS: LORazepam 2 MG/ML VIAL IV PRN (20:50)
[2019-11-28] MEDS ORDERED: MAGNESIUM HYDROXIDE 30 ML ORAL.SUSP ONE (20:50)
[2019-11-28] MEDS ORDERED: ACETAMINOPHEN 500 MG TABLET PO ONE (20:51)
[2019-11-28] MEDS: HYDROCORTISONE CRM 1% TUBE 30GM TOPICAL SCH (20:59)
[2019-11-29] MEDS ORDERED: PANTOPRAZOLE 40 MG TABLET ONE (01:27)
[2019-11-29] MEDS: 0.9 % SODIUM CHLORIDE 10 ML SYRINGE IV SCH ×3 (05:57→12:08)
[2019-11-29] MEDS ORDERED: PANTOPRAZOLE 40 MG TABLET PO SCH (07:30)
[2019-11-29] MEDS: HYDROmorphone 2 MG/ML VIAL IV PRN ×3 (10:13→14:18)
[2019-11-29] MEDS: LORazepam 2 MG/ML VIAL IV PRN ×2 (10:14→14:18)
[2019-11-29] MEDS: LORATADINE 10 MG TABLET PO PRN (10:14)
[2019-11-29] MEDS: HYDROCORTISONE CRM 1% TUBE 30GM TOPICAL SCH (10:14)
--- NOTE | 2019-11-29 12:04 | Discharge Summary ---
Medical - DS: Prov Patient information: Note initiated : 11/29/19 at 11:55 am Service Date, if different from initiated Date: [] Patient: Rosita Rodriguez a 74 y/o F admitted on 11/27/19 for Unresponsive, fever. Chief Complaint: [] Refer to H&P by Ramandeep Urbina M.D.> 11/27/19 Ms. Rodriguez is a 74 year old F with a history of cirrhosis and end-stage renal disease on dialysis, and type 2 diabetes who presented to the ER due to unresponsiveness. Patient is sleeping and comatose. All history is obtained from daughter Anais Freed ([id number]) and chart. Patient lives in a facility where she was found to be responsiveness in this morning. She was admitted to our hospital on 11/18/2019 due to hepatic encephalopathy. In the ER, ammonia 272. ER physician Dr. Joyce explained patient to daughter Anais Freed (POA) who would like her mom to be admitted for comfort care only. Date of admission: 11/27/19 13:50 Discharge date: 11/29/19 Primary care physician: Siria Mcgraw Consults: 11/27/19 Consult to Physician [CONS] Stat Comment: Consulting Provider: Ramandeep Urbina Reason For Exam: Physician to Consult 11/28/19 16:05 Consult to Physician [CONS] Routine Comment: Consulting Provider: Rajat Garcia Reason For Exam: Physician to Consult Medical - DS: Meds - Discharge Medications Active and Home Medications: Home Medications Multivit-Min/Iron/Folic Acid/K [Multi-Day Plus Minerals Tablet] 2 tab PO DAILY 08/21/17 [History Confirmed 11/27/19 Last Taken 11/18/19] Acetaminophen [Non-Aspirin] 650 mg PO Q4HP PRN 11/18/19 [History Confirmed 11/27/19 Last Taken 11/11/19 21:00] DULoxetine [Cymbalta] 60 mg PO DAILY 11/18/19 [History Confirmed 11/27/19 Last Taken Unknown] Furosemide [Lasix] 80 mg PO DAILY 11/18/19 [History Confirmed 11/27/19 Last Taken Unknown] Lactulose [Enulose] 10 gm PO BID 11/18/19 [History Confirmed 11/27/19 Last Taken 11/18/19] Lansoprazole [Prevacid 24Hr] 15 mg PO DAILY 11/18/19 [History Confirmed 11/27/19 Last Taken 11/18/19] Magnesium Hydroxide [Milk of Magnesia] 30 ml PO DAILYP PRN 11/18/19 [History Confirmed 11/27/19 Last Taken 11/11/19 20:00] Rifaximin [Xifaxan] 550 mg PO BID 11/18/19 [History Confirmed 11/27/19 Last Taken 11/18/19 09:00] Spironolactone 50 mg PO DAILY 11/18/19 [History Confirmed 11/27/19 Last Taken Unknown] Bisacodyl [Dulcolax] 10 mg RC DAILYP PRN 11/19/19 [History Confirmed 11/27/19 Last Taken Unknown] Calcium Carbonate [Tums] 2,000 mg CHEWED TIDCC 11/19/19 [History Confirmed 11/27/19 Last Taken 11/17/19] Escitalopram [Lexapro] 10 mg PO DAILY 11/19/19 [History Confirmed 11/27/19 Last Taken 11/18/19] Ferrous Gluconate [Fergon] 240 mg PO DAILY 11/19/19 [History Confirmed 11/27/19 Last Taken 11/18/19] Fluticasone Propionate [Flonase] 1 spray NS HS 11/19/19 [History Confirmed 11/27/19 Last Taken 11/17/19] Insulin Glargine, Human [Lantus] 25 unit SQ HS 11/19/19 [History Confirmed 11/27/19 Last Taken 11/17/19] Ipratropium/Albuterol [Duoneb] 6 ml NEB DAILYP PRN 11/19/19 [History Confirmed 11/27/19 Last Taken Unknown] Na Phos,M-B/Na Phos,Di-Ba [Fleets Adult] 1 dose MN DAILYP PRN 11/19/19 [History Confirmed 11/27/19 Last Taken Unknown] Ubidecarenone [Coq-10] 200 mg PO DAILY 11/19/19 [History Confirmed 11/27/19 Last Taken 11/18/19] Lactulose [Cephulac] 20 gm PO TID #1 oral.yudi 11/23/19 [Rx Confirmed 11/27/19 Last Taken Unknown] Lactulose [Cephulac] 30 gm PO DAILY PRN #20 oral.yudi 11/23/19 [Rx Confirmed 11/27/19 Last Taken Unknown] Insulin Lispro [Humalog] See Protocol SQ ACHS #1 vial 11/24/19 [Rx Confirmed 11/27/19 Last Taken Unknown] Medical - DS: Hosp Hospital Course: Interval history: Assessment: 1. Encephalopathy, hepatic 2. Cirrhosis, liver failure, s/p TIPS procedure in October secondary to recurrent ascites. 3. ESRD on HD - 4. Anemia, chronic: 5. DM type 2 Plan: ER physician Dr. Joyce discussed with daughter Anais Freed (POA) ([id number]) who would like her mom to be admitted for comfort care only. I met daughter Ms Alba who told me that she would like to do comfort care only. No IV fluids No blood or imaging tests No medications which are not related to comfort care DNR/DNI, comfort care only She fully understood pain and sleeping medications can suppress patient's respiration Pt will be admitted to med/surg and Comfort care only will be starting. as per requested by pt and daughter: Nephrology consulted for HD Milk of mag x 1 regular diet 11/27 Today pt is more alert and awake and can answer simple questions. Pt asked something to eat. Discussed with daughter who would like to give her food even though there is a high risk for aspiration. Pt wanted to have HD. Discussed with daughter who agreed to continue comfort care only but also agreed to have HD because this may be the last thing she asks. Consulted nephrology Dr. Garcia who will graciously see pt. Pt asked meds for constipation. Discussed with daughter who agreed with milk of mag. 11/28 As per home care specialist, insurance company would not cover dialysis since she is on comfort care only discussed with the patient and daughter who no longer want dialysis but want to continue comfort care only. [place] accepted pt for comfort care. She will be discharged to the facility. Call PCP or physicians at this facility for medical issues. Discharge diagnosis: Liver failure and ESRD - Time Spent with Patient Total time spent providing and/or coordinating discharge services: Greater than 30 minutes Medical - DS: Exam - Constitutional Vitals: Vital Signs Temp Pulse Resp BP Pulse Ox 11/29/19 08:00 98.7 F 85 18 137/53 96 11/29/19 03:44 99.5 F H 93 H 20 135/56 95 11/28/19 22:41 100.4 F H 11/28/19 21:44 101 F H 11/28/19 20:04 101.0 F H 11/28/19 19:28 99.3 F H 90 20 155/57 98 11/28/19 16:00 99.4 F H 85 20 168/68 99 11/28/19 12:00 98.0 F 74 20 130/60 97 Intake and Output 11/28/19 11/29/19 11/29/19 21:59 05:59 13:59 Intake Total 240 1560 240 Output Total 350 Balance 240 1210 240 Intake: Oral 240 1560 240 Output: Urine Catheter Amount 350 Other: Meal Lunch Breakfast Percent of Meal Consumed 100% 100% Feeding Ability Assist with Tray Set Up Assist with Tray Set Up Urine Appearance Cloudy Small Blood Clots Urine Color Light Gabby Uretheral ([place]) Dark Gabby Urine Odor Strong Weight 81.873 kg - Other Additional findings: General appearance: alert and awake at times. But mildly confused. can answer simple questions Head exam: atraumatic, normal inspection, normocephalic Neck exam: lymphadenopathy Respiratory exam: rhonchi Cardiovascular exam: normal rate and rhythm GI/Abdominal exam: normal bowel sounds, soft Extremities exam: normal inspection Neurological exam: alert and awake at times. does not seem to have focal neurological deficits. Medical - DS: Data Labs on day of discharge: Preliminary micro results at discharge 11/27/19 09:01 Urine Culture - Preliminary Urine - Catheterized Enterobacter Cloacae Complex Medical - DS: A/P - Patient/Caregiver Discharge Instructions Activity: other (as tolerated) Diet: NPO - Follow up Plan Follow up with: Siria Mcgraw MD [Primary Care Provider] - Disposition: [facility] Prognosis: Critical Rehab Potential: Critical
[2019-11-30] MEDS ORDERED: SCOPOLAMINE 1 PATCH PATCH TOPICAL SCH (14:15)
== END 2019-11-29 14:30 | DRG 441 ==
LOC: ED 07:17 → MEDSUR 13:50
PROVIDERS: ADMIT Internal Medicine; ATTEND Internal Medicine